=== PATIENT | male | born 1965 | race Caucasian/White ===

== ENCOUNTER → 2019-12-06 | Outpatient (CLI) | payer BC ==
--- NOTE | 2019-12-06 20:44 | US ---
EXAMINATION TYPE: US scrotum with doppler. Grayscale and color Doppler Duplex imaging performed of t fercho scrotum. DATE OF EXAM: 12/06/2019 COMPARISON: NONE CLINICAL HISTORY: Scrotal pain N50.82. Pt states left groin pain/ pt had left testicle removed 20 yrs ago for testicular CA EXAM MEASUREMENTS: TESTICLES: Right Testicle: 4.6 x 2.1 x 3.6 cm Left Testicle: Surgically absent EPIDIDYMIS HEAD: Right Epididymis: 1.3 cm Doppler performed to assess for testicular vascularity; good bilateral color flow and waveforms are s een. There is no evidence of testicular torsion. Presence of hydroceles: Small amount of fluid inferior Presence of varicoceles: No Microcalcification visualized lower right testicle/ Unable to visualize abnormality within left scr otum/groin to account for pt's symptoms IMPRESSION: 1. No suspicious abnormality to account for left groin pain 2. Microlithiasis inferior right testicle. Microcalcification has been associated with testicular can cer.
== END | disposition home or self-care (01) ==
LOC: RADUSWWP 16:05
PROVIDERS: ATTEND Family Medicine
DX: N50.89 Other specified disorders of the male genital organs (principal)
CPT/HCPCS: 76870; 93976

== ENCOUNTER → 2019-12-06 | Outpatient (CLI) | payer BC ==
--- NOTE | 2019-12-07 08:07 | XR ---
EXAMINATION TYPE: XR lumbosacral spine min 4V DATE OF EXAM: 12/06/2019 COMPARISON: NONE HISTORY: 54-year-old male low back pain for 4 months TECHNIQUE: 5 views FINDINGS: Small or absent T12 ribs. 5 lumbar type vertebral bodies. Subtle 4 mm calcification left mid abdomen. Hypertrophic facet arthropathy mid to lower lumbar spine. No pars interarticularis defect seen. Vert ebral body heights are preserved and alignment are maintained. Mild endplate spondylosis throughout. IMPRESSION: 1. Hypertrophic facet arthropathy mid to lower lumbar spine. The left. 2. Mild multilevel endplate spondylosis. 3. Subtle 4 mm calcification left midabdomen could represent a left renal calculus.
--- NOTE | 2019-12-07 08:08 | XR ---
EXAMINATION TYPE: XR pelvis AP view DATE OF EXAM: 12/06/2019 COMPARISON: NONE HISTORY: 54-year-old male with left-sided pelvic pain for years FINDINGS: Mild marginal spurring of both hips. Tiny 4 mm corticated density superolateral margin of the acetabu lum on the left could represent os acetabuli or degenerative labral ossification. Overall hip joint s pace is relatively maintained. No acute fracture, subluxation, or dislocation seen. SI joints appear symmetric and intact as does the pubic symphysis. IMPRESSION: Mild degenerative change of the hips. Either an os acetabuli or a 4 mm focus of degenerative labral o ssification on the left. No acute osseous abnormality seen.
== END | disposition home or self-care (01) ==
LOC: RAD 16:33
PROVIDERS: ATTEND Family Medicine
DX: M47.897 Other spondylosis, lumbosacral region (principal); M16.10 Unilateral primary osteoarthritis, unspecified hip; R10.2 Pelvic and perineal pain
CPT/HCPCS: 72110; 72170

== ENCOUNTER → 2020-10-03 | Outpatient (CLI) | payer OTHER ==
[~2020-10-03] MED LIST: REGADENOSON 0.4 MG/5 ML SYRINGE IV PRN
--- NOTE | 2020-10-03 15:42 | NM ---
EXAMINATION TYPE: NM stress lexiscan cardiolite DATE OF EXAM: 10/03/2020 COMPARISON: NONE HISTORY: R07.9 chest pain TECHNIQUE: After the intravenous administration of 10.1 mCi Tc 99m Sestamibi - Cardiolite resting SP ECT images acquired 45 minutes post injection. The patient received 0.4mg Lexiscan, 24.8 mCi Tc 99m Sestamibi - Stress images obtained [address] injection FINDINGS: Review of stress and rest SPECT images demonstrates no distinct perfusion abnormality. Gated analysi s shows normal wall motion with an estimated left ventricular ejection fraction of 40 %. IMPRESSION: No scintigraphic evidence for reversible ischemia. Abnormal low ejection fraction, consider correlati on with echocardiography A Yellow level critical message alert has been initiated for Rylie Ham DO via the [employer] Critical Results System on 10/03/2020 3:39 PM. This message alert has been sent to Rylie abbott DO via the preferences provided by the clinician for the receipt of Radiology Critical Findings. [facility] ID [id number].
--- NOTE | 2020-10-04 08:43 | ECHOS ---
- Stress Test Note Stress Test Results/Findings: Exam Performed: NM stress lexiscan cardiolite Exam Date: 10/03/20 Reason for Exam: CHEST PAIN Height: 5 ft 10 in Weight: 104.5 kg Protocol: LEXISCAN Stage: NA Duration of Exercise: 5 MINUTES Resting Heart Rate: 71 Resting Blood Pressure: 146/69 Maximum Achieved Heart Rate: 99 Maximum Achieved Blood Pressure: 170/52 85% PMHR: 139 100% PMHR: 163 METS: NA Technologist Comment: Stress Test Results/Findings: At baseline EKG showed normal sinus rhythm, normal axis, no significant ST or T- wave abnormalities. Patient recieved IV infusion of Lexiscan 0.4mg and at peak infusion EKG showed no significant change from baseline. Conclusions: 1. Normal EKG response to Lexiscan infusion 2. Nuclear imaging to be reported separately. MTDD
== END | disposition home or self-care (01) ==
LOC: RADNMMAIN 07:55
PROVIDERS: ATTEND Family Medicine
DX: R07.9 Chest pain, unspecified (principal)
CPT/HCPCS: 93017; 78452; A9500; J2785

== ENCOUNTER 2021-07-14 11:23 | Observation (INO) | payer OTHER ==
[2021-07-14] MEDS ORDERED: ASPIRIN 81 MG PO STA (12:03)
[2021-07-14] MEDS ORDERED: NITROGLYCERIN OINT 1 INCH/GM PACKET TOPICAL STA (12:03)
--- NOTE | 2021-07-14 12:07 | ED ---
General Adult HPI - General Chief complaint: Chest Pain Stated complaint: chest pain Time Seen by Provider: 07/14/21 11:35 Source: patient, RN notes reviewed, old records reviewed Mode of arrival: ambulatory Limitations: no limitations - History of Present Illness Initial comments: This is a 56-year-old male who presents to the emergency department complaining of chest pain intermittently over the last 2 weeks. Patient states it lasts about 10 minutes typically radiates up into his left side of his neck easily. Patient states she's also noted more shortness of breath over that same period of time. Patient states he used to smoke but now he only smokes marijuana probably once a day. Patient states he has high blood pressure high cholesterol as well as diabetes. Patient also states he has a family history of heart disease his father had a heart attack at 58. Patient states currently chest pain-free. Patient describes the pain is achiness on the left side of his chest. Patient denies any fever chills or cough per patient denies abdominal pain patient denies any nausea vomiting diarrhea. Patient denies any swelling legs or calf tenderness. - Related Data Home Medications Medication Instructions Recorded Confirmed Brimonidine 0.025% 1 drop RIGHT EYE BID 07/14/21 07/14/21 Clopidogrel Bisulfate [Plavix] 75 mg PO W/SUPPER 07/14/21 07/14/21 Pioglitazone HCl 30 mg PO W/SUPPER 07/14/21 07/14/21 Rosuvastatin Calcium 20 mg PO W/SUPPER 07/14/21 07/14/21 amLODIPine [Norvasc] 10 mg PO W/SUPPER 07/14/21 07/14/21 glipiZIDE XL [Glucotrol XL] 2.5 mg PO W/SUPPER 07/14/21 07/14/21 lisinopriL 10 mg PO W/SUPPER 07/14/21 07/14/21 Allergies Allergy/AdvReac Type Severity Reaction Status Date / Time No Known Allergies Allergy Verified 07/14/21 12:59 Review of Systems ROS Statement: Those systems with pertinent positive or pertinent negative responses have been documented in the HPI. ROS Other: All systems not noted in ROS Statement are negative. Past Medical History Past Medical History: Coronary Artery Disease (CAD), Cancer Additional Past Medical History / Comment(s): testicular cancer 2000 History of Any Multi-Drug Resistant Organisms: None Reported Additional Past Surgical History / Comment(s): stent in left groin Past Psychological History: No Psychological Hx Reported Smoking Status: Former smoker Past Alcohol Use History: Occasional Past Drug Use History: Marijuana General Exam - General Exam Comments Initial Comments: GENERAL: Patient is well-developed and well-nourished. Patient is nontoxic and well- hydrated and is in mild distress. ENT: Neck is soft and supple. No significant lymphadenopathy is noted. Oropharynx is clear. Moist mucous membranes. Neck has full range of motion without eliciting any pain. EYES: The sclera were anicteric and conjunctiva were pink and moist. Extraocular movements were intact and pupils were equal round and reactive to light. Eyelids were unremarkable. PULMONARY: Unlabored respirations. Good breath sounds bilaterally. No audible rales rhonchi or wheezing was noted. CARDIOVASCULAR: There is a regular rate and rhythm without any murmurs gallops or rubs. ABDOMEN: Soft and nontender with normal bowel sounds. SKIN: Skin is clear with no lesions or rashes and otherwise unremarkable. NEUROLOGIC: Patient is alert and oriented x3. Cranial nerves II through XII are grossly intact. Motor and sensory are also intact. Normal speech, volume and content. Symmetrical smile. MUSCULOSKELETAL: Normal extremities with adequate strength and full range of motion. No lower extremity swelling or edema. No calf tenderness. LYMPHATICS: No significant lymphadenopathy is noted PSYCHIATRIC: Normal psychiatric evaluation. Limitations: no limitations Course Vital Signs 07/14/21 07/14/21 11:27 12:00 Temperature 97.8 F Pulse Rate 90 84 Respiratory 18 18 Rate Blood Pressure 183/81 154/74 O2 Sat by Pulse 96 98 Oximetry Medical Decision Making - Medical Decision Making EKG shows sinus rhythm at 76 bpm WI interval 141 106 Q-T Intervals 37 QTC Is 417. Patient's EKG Shows No ST Segment Elevation or Depression. Chest x-ray shows no acute abnormality. I spoke was found physicians and agreed to admit the patient admitted the patient wrote admitting orders I consulted cardiology - Lab Data Result diagrams: 07/14/21 12:55 07/14/21 12:55 Lab Results 07/14/21 07/14/21 07/14/21 Range/Units 12:55 12:55 12:55 WBC 7.4 (3.8-10.6) k/uL RBC 4.84 (4.30-5.90) m/uL Hgb 14.9 (13.0-17.5) gm/dL Hct 44.7 (39.0-53.0) % MCV 92.4 (80.0-100.0) fL MCH 30.9 (25.0-35.0) pg MCHC 33.4 (31.0-37.0) g/dL RDW 14.5 (11.5-15.5) % Plt Count 324 (150-450) k/uL MPV 6.9 Neutrophils % 67 % Lymphocytes % 22 % Monocytes % 6 % Eosinophils % 1 % Basophils % 0 % Neutrophils # 5.0 (1.3-7.7) k/uL Lymphocytes # 1.6 (1.0-4.8) k/uL Monocytes # 0.5 (0-1.0) k/uL Eosinophils # 0.1 (0-0.7) k/uL Basophils # 0.0 (0-0.2) k/uL PT 10.1 (9.0-12.0) sec INR 0.9 (<1.2) APTT 23.6 (22.0-30.0) sec Sodium 136 L (137-145) mmol/L Potassium 4.5 (3.5-5.1) mmol/L Chloride 105 (98-107) mmol/L Carbon Dioxide 24 (22-30) mmol/L Anion Gap 7 mmol/L BUN 17 (9-20) mg/dL Creatinine 0.84 (0.66-1.25) mg/dL Est GFR (CKD-EPI)AfAm >90 (>60 ml/min/1.73 sqM) Est GFR (CKD-EPI)NonAf >90 (>60 ml/min/1.73 sqM) Glucose 109 H (74-99) mg/dL Calcium 9.3 (8.4-10.2) mg/dL Magnesium 2.0 (1.6-2.3) mg/dL Total Bilirubin 0.5 (0.2-1.3) mg/dL AST 22 (17-59) U/L ALT 24 (4-49) U/L Alkaline Phosphatase 54 (38-126) U/L Troponin I (0.000-0.034) ng/mL Total Protein 7.2 (6.3-8.2) g/dL Albumin 4.2 (3.5-5.0) g/dL 07/14/21 Range/Units 12:55 WBC (3.8-10.6) k/uL RBC (4.30-5.90) m/uL Hgb (13.0-17.5) gm/dL Hct (39.0-53.0) % MCV (80.0-100.0) fL MCH (25.0-35.0) pg MCHC (31.0-37.0) g/dL RDW (11.5-15.5) % Plt Count (150-450) k/uL MPV Neutrophils % % Lymphocytes % % Monocytes % % Eosinophils % % Basophils % % Neutrophils # (1.3-7.7) k/uL Lymphocytes # (1.0-4.8) k/uL Monocytes # (0-1.0) k/uL Eosinophils # (0-0.7) k/uL Basophils # (0-0.2) k/uL PT (9.0-12.0) sec INR (<1.2) APTT (22.0-30.0) sec Sodium (137-145) mmol/L Potassium (3.5-5.1) mmol/L Chloride (98-107) mmol/L Carbon Dioxide (22-30) mmol/L Anion Gap mmol/L BUN (9-20) mg/dL Creatinine (0.66-1.25) mg/dL Est GFR (CKD-EPI)AfAm (>60 ml/min/1.73 sqM) Est GFR (CKD-EPI)NonAf (>60 ml/min/1.73 sqM) Glucose (74-99) mg/dL Calcium (8.4-10.2) mg/dL Magnesium (1.6-2.3) mg/dL Total Bilirubin (0.2-1.3) mg/dL AST (17-59) U/L ALT (4-49) U/L Alkaline Phosphatase (38-126) U/L Troponin I <0.012 (0.000-0.034) ng/mL Total Protein (6.3-8.2) g/dL Albumin (3.5-5.0) g/dL Disposition Clinical Impression: Chest pain Disposition: ADMITTED IP TO THIS [facility] Referrals: Nonstaff,Physician [Primary Care Provider] - 1-2 days Time of Disposition: 14:09
--- NOTE | 2021-07-14 12:58 | XR ---
EXAMINATION TYPE: XR chest 2V DATE OF EXAM: 07/14/2021 COMPARISON: None HISTORY: 56-year-old male chest pain TECHNIQUE: PA and lateral views FINDINGS: The cardiomediastinal silhouette, aorta, and pulmonary vasculature are within normal limits. Mild hyp erinflation. Lungs and pleural spaces are clear. IMPRESSION: Mild hyperinflation may relate to depth of inspiration or underlying emphysema. Otherwise, no acute c ardiopulmonary process.
[2021-07-14 13:12] LABS: Basophils % (A) 0 %; Eosinophils # (A) 0.1 k/uL (0-0.7); Eosinophils % (A) 1 %; HCT 44.7 % (39.0-53.0); HGB 14.9 gm/dL (13.0-17.5); Lymphocytes # (A) 1.6 k/uL (1.0-4.8); Lymphocytes % (A) 22 %; MCH 30.9 pg (25.0-35.0); MCHC 33.4 g/dL (31.0-37.0); MCV 92.4 fL (80.0-100.0); Mean Platelet Volume 6.9; Monocytes # (A) 0.5 k/uL (0-1.0); Monocytes % (A) 6 %; Neutrophils % (A) 67 %; Platelet Count 324 k/uL (150-450); RBC 4.84 m/uL (4.30-5.90); RDW 14.5 % (11.5-15.5); WBC 7.4 k/uL (3.8-10.6)
[2021-07-14 13:29] LABS: INR 0.9 (<1.2); Partial Thromboplastin Time 23.6 sec (22.0-30.0); Prothrombin Time 10.1 sec (9.0-12.0)
[2021-07-14 13:37] LABS: ALT 24 U/L (4-49); AST 22 U/L (17-59); African American GFR (CKD) >90 (>60 ml/min/1.73 sqM); Albumin 4.2 g/dL (3.5-5.0); Alkaline Phosphatase 54 U/L (38-126); Anion Gap 7 mmol/L; Blood Urea Nitrogen 17 mg/dL (9-20); Calcium 9.3 mg/dL (8.4-10.2); Carbon Dioxide 24 mmol/L (22-30); Chloride 105 mmol/L (98-107); Glucose 109 mg/dL (74-99); Non-African American GFR(CKD) >90 (>60 ml/min/1.73 sqM); Potassium 4.5 mmol/L (3.5-5.1); Sodium 136 mmol/L (137-145); Total Bilirubin 0.5 mg/dL (0.2-1.3); Total Protein 7.2 g/dL (6.3-8.2)
[2021-07-14] MEDS ORDERED: NITROGLYCERIN SL TABS 0.4 MG TAB SUBLINGUAL PRN (14:09)
--- NOTE | 2021-07-14 16:47 | P.HPIM ---
History of Present Illness H&P Date: 07/14/21 History of Presenting Illness: Patient is a very pleasant 56-year-old male with history of former nicotine dependence smoking a half a pack per day 25 years quit in 2003, daily marijuana use, hypertension, hyperlipidemia, [id number]-antnoznmk diabetes mellitus type 2, peripheral vascular disease status post stent in left groin, and testicular cancer. He presented to the emergency department with a chief complaint of chest pain. It was reported this chest pain has been intermittent waxing and waning over the past 2 weeks coming on sporadically lasting about 10 minutes and resolving without intervention. Chest pain is described as a generalized achiness and soreness to left anterior chest that radiates through into his back and up into the left side of his neck and has been accompanied by shortness of breath. Patient states this pain typically occurs later in the evenings and while lying down. He reports walking 10,000 steps daily and never has chest pain or shortness of breath during this activity. Patient denies having any recent illnesses or exposure to known ill contacts, fevers, chills, diaphoresis, headache, lightheadedness, dizziness, cough, congestion, palpitations, nausea, vomiting, or experiencing any numbness/daily/weakness/swelling in his ex tremities. In the Emergency Department patient underwent full evaluation. An EKG was completed revealing normal sinus rhythm at 76 bpm with no noted T-wave or ST abnormalities showing no signs of acute ischemia. Chest x-ray revealing mild hyperinflation possibly secondary to underlying emphysema and negative for acute cardiopulmonary process. Labs completed with CBC, coags, and CMP showing no significant abnormalities. Troponin negative at less than 0.012. Patient was admitted under our services with consultation to cardiology. Review of systems: Pertinent positives and negatives as discussed in HPI, a complete review of systems was performed and all other systems are negative. Physical exam: Vital signs reviewed and stable. General: Nontoxic, no distress and appears stated age. Derm: Skin warm and dry, normal coloration for ethnicity. Head: Atraumatic, normocephalic and symmetric. Eyes: EOMs intact, no lid lag, and anicteric sclera Mouth: no lip lesions, mucus membranes moist Cardiovascular: regular rate and rhythm with normal S1S2, no murmur, positive posterior tibial pulses bilaterally, and cap refill < 2 seconds. Lungs: Respirations even, regular, and unlabored on room air. Lungs CTA bilaterally, no rhonchi, no rales, no wheezing, and no accessory muscle usage. Abdominal: soft, nontender to palpation, no guarding, no appreciable organomegaly Ext: ROM intact. No gross muscle atrophy, no edema, no contractures Neuro: Speech clear, face symmetrical and CN II-XII grossly intact with no noted focal neuro deficits Psych: Alert and oriented to person, place, time, and situation. Appropriate and pleasant affect. Assessment and Plan of Care: Chest pain, rule out acute coronary event -Cardiology consult, appreciate further recommendations -Telemetry monitoring -Trend troponins -Cardiac diet, NPO at midnight -Aspirin, atorvastatin, and metoprolol -Lipid profile with a.m. labs. -Echocardiogram Peripheral vascular disease status post stenting to left groin -Continue daily aspirin, rosuvastatin, and Plavix. Hypertension -Monitor vital signs and continue daily medication regimen with amlodipine and lisinopril. Hyperlipidemia -Continue daily medication regimen with rosuvastatin 20 mg nightly. -Heart healthy diet -Lipid profile with a.m. labs Type II zla-ackxrql-ojywvzric diabetes mellitus -Hold glipizide and pioglitazone and place patient on glycemic protocol with NovoLog sliding scale. Daily cannabis use -Encourage and educate patient on the importance of smoking cessation and the risks associated with continued use. Former nicotine dependence -Patient smoked a half a pack of cigarettes per day 25 years, quit in 2003. The patient is admitted with an anticipated less than 2 midnight stay for evaluation of chest pain. CODE STATUS: Full code DVT prophylaxis: Heparin Discussed with: Patient and RN Anticipated discharge date: Tomorrow morning Anticipated discharge place: Home A total of 40 minutes was spent on the care of this complex patient more than 50% of the time was spent in counseling and care coordination. I reviewed the documentation as provided by the TENISHA above, who is the original author of this note. I agree with the documented assessment and plan, with the following changes: None Past Medical History Past Medical History: Cancer, Diabetes Mellitus, Hyperlipidemia, Hypertension, Sleep Apnea/CPAP/BIPAP, Vascular Disorder Additional Past Medical History / Comment(s): L testicular cancer 2000 with surgery/radiation, NIDDM type II, neuropathy bilateral feet, PVD, GAMAL with Cpap, benign colon polyp History of Any Multi-Drug Resistant Organisms: None Reported Past Surgical History: Breast Surgery Additional Past Surgical History / Comment(s): L groin stent, L orchiectomy, L breast benign lumpectomy, colonoscopies. Past Anesthesia/Blood Transfusion Reactions: No Reported Reaction Smoking Status: Former smoker - Past Family History Mother Family Medical History: Cancer Additional Family Medical History / Comment(s): Mother is . She had some form of blood cancer and heart problems. Father Family Medical History: Coronary Artery Disease (CAD), Diabetes Mellitus Additional Family Medical History / Comment(s): Father is living. Medications and Allergies Home Medications Medication Instructions Recorded Confirmed Type Brimonidine 0.025% 1 drop RIGHT EYE BID 07/14/21 07/14/21 History Clopidogrel Bisulfate [Plavix] 75 mg PO W/SUPPER 07/14/21 07/14/21 History Pioglitazone HCl 30 mg PO W/SUPPER 07/14/21 07/14/21 History Rosuvastatin Calcium 20 mg PO W/SUPPER 07/14/21 07/14/21 History amLODIPine [Norvasc] 10 mg PO W/SUPPER 07/14/21 07/14/21 History glipiZIDE XL [Glucotrol XL] 2.5 mg PO W/SUPPER 07/14/21 07/14/21 History lisinopriL 10 mg PO W/SUPPER 07/14/21 07/14/21 History Allergies Allergy/AdvReac Type Severity Reaction Status Date / Time No Known Allergies Allergy Verified 07/14/21 12:59 Physical Exam Osteopathic Statement: *. No significant issues noted on an osteopathic structural exam other than those noted in the History and Physical/Consult. Vitals: Vital Signs Temp Pulse Resp BP Pulse Ox 07/14/21 12:00 84 18 154/74 98 07/14/21 11:27 97.8 F 90 18 183/81 96 Intake and Output 07/14/21 07/14/21 07/14/21 06:59 14:59 22:59 Other: Weight 108.862 kg 108.862 kg Results CBC & Chem 7: 07/14/21 12:55 07/14/21 12:55 Labs: Abnormal Lab Results - Last 24 Hours (Table) 07/14/21 Range/Units 12:55 Sodium 136 L (137-145) mmol/L Glucose 109 H (74-99) mg/dL Thrombosis Risk Factor Assmnt - Choose All That Apply Any of the Below Risk Factors Present?: Yes Each Factor Represents 1 point: Age 41-60 years, Obesity (BMI >25) Other Risk Factors: Yes Each Risk Factor Represents 2 Points: Malignancy Other congenital or acquired thrombophilia - If yes, enter type in comment: No Thrombosis Risk Factor Assessment Total Risk Factor Score: 4 Thrombosis Risk Factor Assessment Level: Moderate Risk
[2021-07-14] MEDS ORDERED: ATORVASTATIN 40 MG TAB PO SCH ×2 (17:30→21:00)
[2021-07-14] MEDS ORDERED: CLOPIDOGREL 75 MG TAB PO SCH (17:30)
[2021-07-14] MEDS ORDERED: lisinopriL 10 MG TAB PO SCH (17:30)
[2021-07-14] MEDS ORDERED: amLODIPine 10 MG TAB PO SCH (17:30)
[2021-07-14 17:53] LABS: Glucose,Whole Blood 191 mg/dL (75-99)
[2021-07-14] MEDS: HEPARIN SODIUM,PORCINE/PF 5,000 UNIT/0.5 ML SYRINGE SQ SCH ×2 (18:07→23:49)
[2021-07-14] MEDS: PANTOPRAZOLE 40 MG TABLET PO SCH (18:09)
[2021-07-14] MEDS: NITROGLYCERIN OINT 1 INCH/GM PACKET TOPICAL SCH ×2 (18:11→23:51)
[2021-07-14] MEDS: INSULIN ASPART (NovoLOG) 100 UNIT/ML VIAL SQ SCH ×2 (20:42→21:38)
[2021-07-15] MEDS: NITROGLYCERIN OINT 1 INCH/GM PACKET TOPICAL SCH (04:40)
--- NOTE | 2021-07-15 06:51 | ECHOF ---
Referral Reason:Evaluate structure and function MEASUREMENTS -------- HEIGHT: 180.3 cm WEIGHT: 108.9 kg BP: RVIDd: 2.6 cm (< 3.3) IVSd: 1.4 cm (0.6 - 1.1) LVIDd: 4.8 cm (3.9 - 5.3) LVPWd: 1.3 cm (0.6 - 1.1) IVSs: 1.8 cm LVIDs: 3.0 cm LVPWs: 1.9 cm LA Diam: 3.6 cm (2.7 - 3.8) LAESV Index (A-L): 18.62 ml/m Ao Diam: 3.4 cm (2.0 - 3.7) AV Cusp: 1.8 cm (1.5 - 2.6) MV EXCURSION: 14.703 mm (> 18.000) MV EF SLOPE: 57 mm/s (70 - 150) EPSS: 0.7 cm MV E Wilfredo: 0.67 m/s MV DecT: 274 ms MV A Wilfredo: 0.46 m/s MV E/A Ratio: 1.47 FINDINGS -------- Sinus rhythm. This was a technically adequate study. The left ventricular size is normal. There is moderate concentric left ventricular hypertrophy. O verall left ventricular systolic function is normal with, an EF between 55 - 60 %. The right ventricle is normal in size. Normal LA size by volume 22+/-6 ml/m2. The right atrial size is normal. Interatrial and interventricular septum intact. The aortic valve is trileaflet, and appears structurally normal. No aortic stenosis or regurgitation. The mitral valve is normal. There is trace to mild mitral regurgitation. The tricuspid valve appears structurally normal. Trace tricuspid regurgitation present. Unable to estimate RVSP due to inadequate TR jet spectral doppler profile. The pulmonic valve was not well visualized. There is no pulmonic regurgitation present. The aortic root size is normal. Normal inferior vena cava with normal inspiratory collapse consistent with estimated right atrial pre ssure of 5 mmHg. Echo free space may represent effusion or a pericardial fat pad. CONCLUSIONS -------- 1. There is moderate concentric left ventricular hypertrophy. 2. Overall left ventricular systolic function is normal with, an EF between 55 - 60 %. 3. The aortic valve is trileaflet, and appears structurally normal. No aortic stenosis or regurgitati on. 4. There is trace to mild mitral regurgitation. 5. Trace tricuspid regurgitation present. 6. Echo free space may represent effusion or a pericardial fat pad. FABRIC NORMALIZER: FILOMENA Richter
[2021-07-15 07:04] VITALS: RESP 16
[2021-07-15 07:17] LABS: Glucose,Whole Blood 122 mg/dL (75-99)
--- NOTE | 2021-07-15 07:31 | P.CRDCN ---
History of Present Illness Consult date: 07/15/21 History of present illness: History of Present Illness: The patient is a 56-year-old male with a known history of hypertension, hyperlipidemia, diabetes and a prior history of smoking who presented with symptoms of chest discomfort. His discomfort has been going on for the last week or so, predominantly at rest, not activity related. He walks about 10,000 steps a day and has no significant chest discomfort yet recently he has noted some increase in his dyspnea on exertion. He has no prior history of documented obstructive coronary artery disease but he has a history of peripheral vessel disease status post stenting of his left lower extremity. He has no history of PND or orthopnea. He has mild peripheral edema on the left side. He denies any dizziness, palpitations or syncope. He underwent an echocardiogram that showed a normal systolic function. He has been followed on a regular basis by Dr. Chadwick. He smokes marijuana on a daily basis and stop tobacco use in 2004. His medication at home include lisinopril 10 mg daily, rosuvastatin 20 mg daily, Actos 30 mg daily, glipizide 2.5 milligrams daily, Plavix 75 mg daily and amlodipine 5 mg daily. Review of Systems: Respiratory: No history of asthma, bronchitis or recent cough. GI: She had nausea and vomiting today. No history of peptic ulcer disease. No recent GI bleed. : No hematuria or dysuria. Nervous System: No stroke or seizure. Physical Examination: 56-year-old male alert and oriented no apparent stress, blood pressure 131/70 with a heart rate 60 Head: Normocephalic. Eyes: Sclerae nonicteric. Neck: Good carotid upstroke, no bruit, no jugular venous distention. Lungs: Clear to auscultation. Heart: Regular rate and rhythm, S1-S2, no S3, no rub. No murmur. Abdomen: Soft nontender, positive bowel sounds no organomegaly. Extremities: Trace edema on the left side, intact distal pulses. Labs: EKG shows sinus mechanism with borderline right axis deviation otherwise within normal range. Chest x-ray shows no acute infiltrate. Troponin less than 0.012, BUN 17, creatinine 0.84. Hemoglobin 14.9 Impression: 1. Chest discomfort of unclear etiology, has atypical features for ischemic heart disease in a patient with multiple risk factors 2. History of peripheral vascular disease 3. History of hypertension 4. History of diabetes 5. History of hyperlipidemia 6. Marijuana use Plan: 1. Continue present therapy 2. Proceed with stress nuclear testing 3. If there is any evidence of stress-induced ischemia then proceed with coronary angiography 4. I discussed the findings and the recommendation with the patient and depending on the results of the testing further recommendations will be made 5. Thank you for this consult we will follow with you. 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 Past Anesthesia/Blood Transfusion Reactions: No Reported Reaction Smoking Status: Former smoker - Past Family History Mother Family Medical History: Cancer Additional Family Medical History / Comment(s): Mother is . She had some form of blood cancer and heart problems. Father Family Medical History: Coronary Artery Disease (CAD), Diabetes Mellitus Additional Family Medical History / Comment(s): Father is living. Medications and Allergies Home Medications Medication Instructions Recorded Confirmed Type Brimonidine 0.025% 1 drop RIGHT EYE BID 07/14/21 07/14/21 History Clopidogrel Bisulfate [Plavix] 75 mg PO W/SUPPER 07/14/21 07/14/21 History Pioglitazone HCl 30 mg PO W/SUPPER 07/14/21 07/14/21 History Rosuvastatin Calcium 20 mg PO W/SUPPER 07/14/21 07/14/21 History amLODIPine [Norvasc] 10 mg PO W/SUPPER 07/14/21 07/14/21 History glipiZIDE XL [Glucotrol XL] 2.5 mg PO W/SUPPER 07/14/21 07/14/21 History lisinopriL 10 mg PO W/SUPPER 07/14/21 07/14/21 History Allergies Allergy/AdvReac Type Severity Reaction Status Date / Time No Known Allergies Allergy Verified 07/14/21 12:59 Physical Exam Vitals: Vital Signs Temp Pulse Pulse Resp BP BP BP 07/15/21 06:53 97.5 F L 59 L 16 131/72 07/15/21 02:51 98.1 F 64 15 131/70 07/14/21 21:04 97.9 F 65 16 132/75 07/14/21 19:00 84 18 154/74 07/14/21 18:00 80 16 133/82 07/14/21 16:00 82 18 126/78 07/14/21 14:00 80 18 138/78 07/14/21 12:00 84 18 154/74 07/14/21 11:27 97.8 F 90 18 183/81 Pulse Ox 07/15/21 06:53 98 07/15/21 02:51 98 07/14/21 21:04 97 07/14/21 19:00 98 07/14/21 18:00 98 07/14/21 16:00 98 07/14/21 14:00 98 07/14/21 12:00 98 07/14/21 11:27 96 Intake and Output 07/14/21 07/15/21 07/15/21 22:59 06:59 14:59 Other: # Voids 1 1 Weight 108.862 kg Results 07/14/21 12:55 07/14/21 12:55 Cardiac Enzymes 07/14/21 07/14/21 07/14/21 Range/Units 12:55 12:55 18:28 AST 22 (17-59) U/L Troponin I <0.012 <0.012 (0.000-0.034) ng/mL 07/14/21 Range/Units 21:15 AST (17-59) U/L Troponin I <0.012 (0.000-0.034) ng/mL Coagulation 07/14/21 Range/Units 12:55 PT 10.1 (9.0-12.0) sec APTT 23.6 (22.0-30.0) sec CBC 07/14/21 Range/Units 12:55 WBC 7.4 (3.8-10.6) k/uL RBC 4.84 (4.30-5.90) m/uL Hgb 14.9 (13.0-17.5) gm/dL Hct 44.7 (39.0-53.0) % Plt Count 324 (150-450) k/uL Comprehensive Metabolic Panel 07/14/21 Range/Units 12:55 Sodium 136 L (137-145) mmol/L Potassium 4.5 (3.5-5.1) mmol/L Chloride 105 (98-107) mmol/L Carbon Dioxide 24 (22-30) mmol/L BUN 17 (9-20) mg/dL Creatinine 0.84 (0.66-1.25) mg/dL Glucose 109 H (74-99) mg/dL Calcium 9.3 (8.4-10.2) mg/dL AST 22 (17-59) U/L ALT 24 (4-49) U/L Alkaline Phosphatase 54 (38-126) U/L Total Protein 7.2 (6.3-8.2) g/dL Albumin 4.2 (3.5-5.0) g/dL Current Medications Generic Name Dose Route Start Last Admin Trade Name Freq PRN Reason Stop Dose Admin Amlodipine Besylate 10 mg 07/14/21 17:30 07/14/21 18:08 Amlodipine 10 Mg Tab PO 10 mg W/SUPPER [facility] Administration Aspirin 81 mg 07/15/21 09:00 Aspirin 81 Mg PO DAILY [facility] Atorvastatin Calcium 40 mg 07/14/21 17:30 07/14/21 18:09 Atorvastatin 40 Mg Tab PO 40 mg W/SUPPER JENNIFER Administration Clopidogrel Bisulfate 75 mg 07/14/21 17:30 07/14/21 18:09 Clopidogrel 75 Mg Tab PO 75 mg W/SUPPER JENNIFER Administration Glipizide 2.5 mg 07/14/21 21:00 07/14/21 21:35 Glipizide 2.5 Mg Tab PO 2.5 mg W/SUPPER JENNIFER Administration Heparin Sodium (Porcine) 5,000 unit 07/14/21 16:00 07/14/21 23:49 Heparin Sodium,Porcine/Pf 5,000 Unit/0.5 Ml Syringe SQ 5,000 unit Q8HR JENNIFER Administration Insulin Aspart 0 unit 07/14/21 17:30 07/14/21 21:38 Insulin Aspart (Novolog) 100 Unit/Ml Vial SQ Not Given [facility] Protocol Lisinopril 10 mg 07/14/21 17:30 07/14/21 18:10 Lisinopril 10 Mg Tab PO 10 mg W/SUPPER JENNIFER Administration Nitroglycerin 0.4 mg 07/14/21 14:09 Nitroglycerin Sl Tabs 0.4 Mg Tab SUBLINGUAL Q5M PRN Chest Pain Pantoprazole Sodium 40 mg 07/14/21 17:30 07/14/21 18:09 Pantoprazole 40 Mg Tablet PO 40 mg AC-BID JENNIFER Administration Intake and Output 07/14/21 07/15/21 07/15/21 22:59 06:59 14:59 Other: # Voids 1 1 Weight 108.862 kg 07/14/21 12:55 07/14/21 12:55
[2021-07-15] MEDS: INSULIN ASPART (NovoLOG) 100 UNIT/ML VIAL SQ SCH ×2 (07:55→13:40)
[2021-07-15] MEDS: HEPARIN SODIUM,PORCINE/PF 5,000 UNIT/0.5 ML SYRINGE SQ SCH (08:03)
[2021-07-15] MEDS: PANTOPRAZOLE 40 MG TABLET PO SCH (08:03)
[2021-07-15] MEDS ORDERED: ASPIRIN 325 MG TAB PO SCH (09:00)
[2021-07-15] MEDS ORDERED: ASPIRIN 81 MG PO SCH (09:00)
[2021-07-15 09:23] LABS: Chol/HDL Ratio 3.05 Ratio; LDL Cholesterol,Calculated 71.4 mg/dL (0.0-131.0)
--- NOTE | 2021-07-15 10:50 | P.PN ---
Subjective Progress Note Date: 07/15/21 HISTORY OF PRESENT ILLNESS: The patient is a 56-year-old male with a known history of hypertension, hyperlipidemia, diabetes and a prior history of smoking who presented with symptoms of chest discomfort. His discomfort has been going on for the last week or so, predominantly at rest, not activity related. He walks about 10,000 steps a day and has no significant chest discomfort yet recently he has noted some increase in his dyspnea on exertion. He has no prior history of documented obstructive coronary artery disease but he has a history of peripheral vessel disease status post stenting of his left lower extremity. He has no history of PND or orthopnea. He has mild peripheral edema on the left side. He denies any dizziness, palpitations or syncope. He underwent an echocardiogram that showed a normal systolic function. He has been followed on a regular basis by Dr. Chadwick. He smokes marijuana on a daily basis and stop tobacco use in 2004. His medication at home include lisinopril 10 mg daily, rosuvastatin 20 mg daily, Actos 30 mg daily, glipizide 2.5 milligrams daily, Plavix 75 mg daily and amlodipine 5 mg daily. 07/15/2021 Patient examined this morning. Patient denies chest pain or pressure. Patient denies shortness of breath. Echocardiogram completed revealing ejection fraction 55-60%, trace to mild MR, trace TR. Vital signs are stable. PHYSICAL EXAM: VITAL SIGNS: Reviewed. GENERAL: Well-developed in no acute distress. NECK: Supple. No JVD or thyromegaly LUNGS: Respirations even and unlabored. Lungs essentially clear to auscultation bilaterally. HEART: Regular rate and rhythm. S1 and S2 heard. EXTREMITIES: Normal range of motion. No clubbing or cyanosis. Peripheral pulses intact. No lower extremity edema ASSESSMENT: 1. Chest discomfort of unclear etiology, has atypical features for ischemic heart disease in a patient with multiple risk factors 2. History of peripheral vascular disease 3. History of hypertension 4. History of diabetes 5. History of hyperlipidemia 6. Marijuana use PLAN: Continue current cardiac medications Patient to undergo Lexiscan stress test this morning. If Kristin scan is negative, the patient may be discharged home from a cardiac standpoint Further recommendations pending patient's course Nurse practitioner note has been reviewed by physician. Signing provider agrees with the documented findings, assessment, and plan of care. Objective - Vital Signs Vital signs: Vital Signs Temp 97.5 F L 07/15/21 06:53 Pulse 59 L 07/15/21 06:53 Resp 16 07/15/21 06:53 BP 131/72 07/15/21 06:53 Pulse Ox 98 07/15/21 06:53 Intake & Output 07/14/21 07/15/21 07/15/21 18:59 06:59 18:59 Weight 108.862 kg Other: # Voids 1 - Labs CBC & Chem 7: 07/14/21 12:55 07/14/21 12:55 Labs: Abnormal Lab Results - Last 24 Hours (Table) 07/14/21 07/14/21 07/15/21 Range/Units 12:55 17:51 06:11 Sodium 136 L (137-145) mmol/L Glucose 109 H (74-99) mg/dL POC Glucose (mg/dL) 191 H (75-99) mg/dL Triglycerides 171.00 H (0.00-149.00) mg/dL 07/15/21 Range/Units 07:15 Sodium (137-145) mmol/L Glucose (74-99) mg/dL POC Glucose (mg/dL) 122 H (75-99) mg/dL Triglycerides (0.00-149.00) mg/dL
[2021-07-15 12:16] LABS: Glucose,Whole Blood 107 mg/dL (75-99)
--- NOTE | 2021-07-15 13:09 | NM ---
EXAMINATION TYPE: NM stress cardiolite complete DATE OF EXAM: 07/15/2021 COMPARISON: NONE HISTORY: TECHNIQUE: After the intravenous administration of 10.0 mCi Tc 99m Sestamibi - Rest images obtained 45 minutes post injection. The patient exercised using a BRAD protocol and 1 minute prior to peak exercise was injected with 27.0 mCi Tc 99m Sestamibi - Stress images obtained 40 minutes post injecti on. FINDINGS: Targeted heart rate was achieved during performance of the study. Review of stress and rest SPECT kate ges demonstrates no distinct perfusion abnormality. Gated analysis shows normal wall motion with an estimated left ventricular ejection fraction of 57 %. IMPRESSION: No scintigraphic evidence for reversible ischemia
--- NOTE | 2021-07-15 13:38 | P.DS ---
Providers Date of admission: 07/14/21 14:09 Expected date of discharge: 07/15/21 Attending physician: Darío Rodriguez MD Consults: 07/14/21 14:09 Consult Physician Urgent Consulting Provider: [facility] Consult Reason/Comments: Chest pain Do you want consulting provider notified?: Yes Primary care physician: Physician Nonstaff Hospital Course: Discharge Diagnosis: Chest pain, acute coronary event ruled out Hypertriglyceridemia, recommend continuation of daily rosuvastatin, Plavix, and heart healthy diet. Peripheral vascular disease status post stenting to left groin, Continue daily rosuvastatin and Plavix. Hypertension, Monitor vital signs and continue daily medication regimen with amlodipine and lisinopril. Hyperlipidemia, Continue daily medication regimen with rosuvastatin 20 mg nightly. Mild hyperinflation of lungs possible underlying emphysema, recommend follow up outpatient with pulmonology for PFTs Type II gth-[id number]-nxdbmfnra diabetes mellitus, continue daily medication regimen with glipizide and pioglitazone Daily cannabis use, recommend cessation of smoking marijuana Former nicotine dependence, Patient smoked a half a pack of cigarettes per day 25 years, quit in 2003. Hospital Course: Patient is a very pleasant 56-year-old male with history of former nicotine dependence smoking a half a pack per day 25 years quit in 2003, daily marijuana use, hypertension, hyperlipidemia, bbg-hxrmgny-cjgukdtch diabetes mellitus type 2, peripheral vascular disease status post stent in left groin, and testicular cancer. He presented to the emergency department with a chief complaint of chest pain. It was reported this chest pain has been intermittent waxing and waning over the past 2 weeks coming on sporadically lasting about 10 minutes and resolving without intervention. Chest pain is described as a generalized achiness and soreness to left anterior chest that radiates through into his back and up into the left side of his neck and has been accompanied by shortness of breath. Patient states this pain typically occurs later in the evenings and while lying down. He reports walking 10,000 steps daily and never has chest pain or shortness of breath during this activity. Patient denies having any recent illnesses or exposure to known ill contacts, fevers, chills, diaphoresis, headache, lightheadedness, dizziness, cough, congestion, palpitations, nausea, vomiting, or experiencing any numbness/daily/weakness/swelling in his extremi ties. In the Emergency Department patient underwent full evaluation. An EKG was completed revealing normal sinus rhythm at 76 bpm with no noted T-wave or ST abnormalities showing no signs of acute ischemia. Chest x-ray revealing mild hyperinflation possibly secondary to underlying emphysema and negative for acute cardiopulmonary process. Labs completed with CBC, coags, and CMP showing no significant abnormalities. Troponin negative at less than 0.012. Patient was admitted under our services with consultation to cardiology. Troponins were trended overnight all resulting at less than 0.012 times 3 draws. Echocardiogram showing an EF of 55-60% with no significant valvular abnormalities and moderate concentric left ventricular hypertrophy. Stress test revealing no scintigraphic evidence for reversible ischemia. Lipid profile revealing hypertriglyceridemia with triglycerides of 171. Patient to continue with rosuvastatin and Plavix and recommended to follow heart healthy diet. In regards to mild hyperinflation with possible underlying emphysema, had long discussion with patient and over continued smoking cessation with cigarettes and recommended cessation of smoking marijuana. Patient states this was a wakeup call and reports that he will Smoking. Instructed to follow up outpatient with his PCP and cardiology and given contact information for relays draftsperson was called with her head to have baseline pulmonary function tests completed. Patient is free from chest pain walking around unit without any complaints. Vital signs stable. Patient medically stable for discharge at this time. Physical exam: Vital signs reviewed and stable. General: Nontoxic, no distress and appears stated age. Derm: Skin warm and dry, normal coloration for ethnicity. Head: Atraumatic, normocephalic and symmetric. Eyes: EOMs intact, no lid lag, and anicteric sclera Mouth: no lip lesions, mucus membranes moist Cardiovascular: regular rate and rhythm with normal S1S2, no murmur, positive posterior tibial pulses bilaterally, and cap refill < 2 seconds. Lungs: Respirations even, regular, and unlabored on room air. Lungs CTA bilaterally, no rhonchi, no rales, no wheezing, and no accessory muscle usage. Abdominal: soft, nontender to palpation, no guarding, no appreciable organomegaly Ext: ROM intact. No gross muscle atrophy, no edema, no contractures Neuro: Speech clear, face symmetrical and CN II-XII grossly intact with no noted focal neuro deficits Psych: Alert and oriented to person, place, time, and situation. Appropriate and pleasant affect. A total of 37 minutes of time were spent preparing this complex discharge summary. I reviewed the documentation as provided by the TENISHA above, who is the original author of this note. I agree with the documented assessment and plan, with the following changes: None Patient Condition at Discharge: Stable Plan - Discharge Summary Discharge Rx Participant: No New Discharge Prescriptions: Continue Brimonidine 0.025% 1 drop RIGHT EYE BID amLODIPine [Norvasc] 10 mg PO W/SUPPER Clopidogrel Bisulfate [Plavix] 75 mg PO W/SUPPER glipiZIDE XL [Glucotrol XL] 2.5 mg PO W/SUPPER lisinopriL 10 mg PO W/SUPPER Pioglitazone HCl 30 mg PO W/SUPPER Rosuvastatin Calcium 20 mg PO W/SUPPER Discharge Medication List Brimonidine 0.025% 1 drop RIGHT EYE BID 07/14/21 [History] Clopidogrel Bisulfate [Plavix] 75 mg PO W/SUPPER 07/14/21 [History] Pioglitazone HCl 30 mg PO W/SUPPER 07/14/21 [History] Rosuvastatin Calcium 20 mg PO W/SUPPER 07/14/21 [History] amLODIPine [Norvasc] 10 mg PO W/SUPPER 07/14/21 [History] glipiZIDE XL [Glucotrol XL] 2.5 mg PO W/SUPPER 07/14/21 [History] lisinopriL 10 mg PO W/SUPPER 07/14/21 [History] Follow up Appointment(s)/Referral(s): Clint Wright MD [REFERRING] - 1 Week Yamilet Rodney MD [STAFF PHYSICIAN] - 1 Week (As we discussed he may follow-up with relays draftsperson for outpatient pulmonary function tests.) Wes Lanza MD [STAFF PHYSICIAN] - 2 Weeks Patient Instructions/Handouts: Chest Pain (DC), Cardiac Stress Test (DC) Activity/Diet/Wound Care/Special Instructions: Activity: As tolerated. Take breaks as needed. Diet: Heart healthy and carb consistent diet. Avoid salts, or foods with hidden salts such as canned or boxed foods and frozen dinners. Extra salt makes your heart work harder and traps the fluid in your body for longer. Special Instructions: Take all of your medications as directed and remember to keep all of your doctor's appointments and follow-up as needed. Your triglyceride levels were elevated at 171, recommend continuation of daily Plavix and rosuvastatin and following a heart healthy diet as we discussed. Thank you for allowing us to participate in your care, it was truly a pleasure having you for our patient!!! Discharge Disposition: HOME SELF-CARE
[2021-07-15 13:48] VITALS: BP 124/79; PULSE 90; TEMP 97.6
--- NOTE | 2021-07-15 15:27 | EST ---
EXERCISE STRESS AGE: 56 SEX: M HT: 5'11" WT: 239 lbs PROTOCOL: Thomas STAGE: 3 DURATION OF EXERCISE: 8:00 HEART RATE REST: 82 BLOOD PRESSURE REST: 139/76 MAXIMUM HEART RATE ACHIEVED: 154 MAXIMUM BLOOD PRESSURE: 198/68 85% MPHR: 138 100% MPHR: 162 METS: 9.7 INDICATIONS: @@ CLINICAL INFORMATION: Baseline rhythm is sinus mechanism, rate of 82, left axis deviation. Cannot exclude anterior wall myocardial infarction. Baseline blood pressure 139/76 mmHg. Patient exercised on Thomas protocol for 9 minutes 40 seconds, reaching a peak rate of 154 beats per minute, peak blood pressure 175/61 mmHg. Test was terminated secondary to fatigue. There was no chest pain. Electrocardiograph monitoring revealed rare PVCs. There was a [address]-segment depression in the inferolateral leads that resolved gradually in recovery. FINDINGS: 1. Average exercise tolerance with no chest discomfort. 2. Positive electrocardiograph stress testing with [address]-segment depression at peak exercise. If clinically indicated, a stress imaging test will be helpful. MMODL / IJN: [id number] /
== END 2021-07-15 13:56 | disposition home or self-care (01) ==
LOC: EC 11:23 → 6NMEDSUR 14:09
PROVIDERS: ADMIT Internal Medicine; ATTEND Internal Medicine
DX: R07.9 Chest pain, unspecified (principal); E78.1 Pure hyperglyceridemia; I08.1 Rheumatic disorders of both mitral and tricuspid valves; E11.51 Type 2 diabetes mellitus with diabetic peripheral angiopathy without gangrene; I10 Essential (primary) hypertension; E78.5 Hyperlipidemia, unspecified; E11.42 Type 2 diabetes mellitus with diabetic polyneuropathy; Z87.891 Personal history of nicotine dependence; Z95.820 Peripheral vascular angioplasty status with implants and grafts; Z85.47 Personal history of malignant neoplasm of testis; G47.33 Obstructive sleep apnea (adult) (pediatric); Z92.3 Personal history of irradiation; Z86.010 Personal history of colon polyps; Z98.890 Other specified postprocedural states; Z80.8 Family history of malignant neoplasm of other organs or systems; Z83.3 Family history of diabetes mellitus; Z82.49 Family history of ischemic heart disease and other diseases of the circulatory system; Z79.84 Long term (current) use of oral hypoglycemic drugs; Z79.02 Long term (current) use of antithrombotics/antiplatelets; Z79.82 Long term (current) use of aspirin; Z79.899 Other long term (current) drug therapy
CPT/HCPCS: 96372 ×3; 99285; 36415; 93005; 93017; 93306; 80061; 80053; 83735; 84484; 85025; 85610; 85730; 71046; 78452; G0378 ×2; A9500; J1644 ×2

== ENCOUNTER 2021-07-17 00:55 | Observation (INO) | payer OTHER ==
[2021-07-17 01:47] LABS: Basophils % (A) 0 %; Eosinophils % (A) 0 %; HCT 41.6 % (39.0-53.0); Lymphocytes # (A) 1.3 k/uL (1.0-4.8); Lymphocytes % (A) 11 %; MCHC 33.8 g/dL (31.0-37.0); MCV 91.9 fL (80.0-100.0); Mean Platelet Volume 6.9; Monocytes # (A) 0.3 k/uL (0-1.0); Monocytes % (A) 3 %; Neutrophils # (A) 9.5 k/uL (1.3-7.7); Neutrophils % (A) 84 %; Platelet Count 311 k/uL (150-450); RBC 4.52 m/uL (4.30-5.90); RDW 14.4 % (11.5-15.5); WBC 11.3 k/uL (3.8-10.6)
[2021-07-17 01:56] LABS: INR 0.9 (<1.2); Partial Thromboplastin Time 22.3 sec (22.0-30.0); Prothrombin Time 10.2 sec (9.0-12.0)
[2021-07-17 01:58] LABS: ALT 27 U/L (4-49); AST 32 U/L (17-59); African American GFR (CKD) >90 (>60 ml/min/1.73 sqM); Albumin 4.6 g/dL (3.5-5.0); Alkaline Phosphatase 50 U/L (38-126); Anion Gap 14 mmol/L; Blood Urea Nitrogen 19 mg/dL (9-20); Calcium 9.4 mg/dL (8.4-10.2); Carbon Dioxide 20 mmol/L (22-30); Chloride 97 mmol/L (98-107); Glucose 153 mg/dL (74-99); Magnesium 1.8 mg/dL (1.6-2.3); Non-African American GFR(CKD) 88 (>60 ml/min/1.73 sqM); Potassium 4.2 mmol/L (3.5-5.1); Sodium 131 mmol/L (137-145); Total Bilirubin 0.7 mg/dL (0.2-1.3); Total Protein 7.5 g/dL (6.3-8.2)
--- NOTE | 2021-07-17 02:26 | XR ---
EXAMINATION TYPE: XR chest 2V DATE OF EXAM: 07/17/2021 COMPARISON: 07/14/2021 HISTORY: Chest pain TECHNIQUE: FINDINGS: Heart and mediastinum are normal. Lungs are clear. Diaphragm is normal. Bony thorax appears normal. IMPRESSION: Normal chest. No change.
--- NOTE | 2021-07-17 04:16 | ED ---
Chest Pain HPI - General Chief Complaint: Chest Pain Stated Complaint: Chest Pain, arm numbness Time Seen by Provider: 07/17/21 04:15 Source: patient, family Mode of arrival: ambulatory Limitations: no limitations - Related Data Home Medications Medication Instructions Recorded Confirmed Brimonidine 0.025% 1 drop RIGHT EYE BID 07/14/21 07/14/21 Clopidogrel Bisulfate [Plavix] 75 mg PO W/SUPPER 07/14/21 07/14/21 Pioglitazone HCl 30 mg PO W/SUPPER 07/14/21 07/14/21 Rosuvastatin Calcium 20 mg PO W/SUPPER 07/14/21 07/14/21 amLODIPine [Norvasc] 10 mg PO W/SUPPER 07/14/21 07/14/21 glipiZIDE XL [Glucotrol XL] 2.5 mg PO W/SUPPER 07/14/21 07/14/21 lisinopriL 10 mg PO W/SUPPER 07/14/21 07/14/21 Allergies Allergy/AdvReac Type Severity Reaction Status Date / Time No Known Allergies Allergy Verified 07/17/21 01:04 Review of Systems ROS Statement: Those systems with pertinent positive or pertinent negative responses have been documented in the HPI. ROS Other: All systems not noted in ROS Statement are negative. EKG Findings - EKG Comments: EKG Findings:: EKG is sinus rhythm 99 OH 134 QRS 42 QTC 407 Past Medical History Past Medical History: Cancer, Diabetes Mellitus, Hyperlipidemia, Hypertension, Sleep Apnea/CPAP/BIPAP, Vascular Disorder Additional Past Medical History / Comment(s): L testicular cancer 2001 with surgery/radiation, NIDDM type II, neuropathy bilateral feet, PVD, GAMAL with Cpap, benign colon polyp History of Any Multi-Drug Resistant Organisms: None Reported Past Surgical History: Breast Surgery Additional Past Surgical History / Comment(s): L groin stent, L orchiectomy, L breast benign lumpectomy, colonoscopies. Past Anesthesia/Blood Transfusion Reactions: No Reported Reaction Past Psychological History: No Psychological Hx Reported Smoking Status: Former smoker Past Alcohol Use History: None Reported Past Drug Use History: Marijuana - Past Family History Mother Family Medical History: Cancer Additional Family Medical History / Comment(s): Mother is . She had some form of blood cancer and heart problems. Father Family Medical History: Coronary Artery Disease (CAD), Diabetes Mellitus Additional Family Medical History / Comment(s): Father is living. 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
[2021-07-17] MEDS ORDERED: MORPHINE SULFATE 4 MG/ML SYRINGE IV PRN (05:44)
[2021-07-17] MEDS ORDERED: NITROGLYCERIN SL TABS 0.4 MG TAB SUBLINGUAL PRN (05:44)
[2021-07-17] MEDS ORDERED: ASPIRIN 81 MG PO STA (05:44)
[2021-07-17] MEDS ORDERED: HEPARIN SODIUM 1,000 UN/ML (10ML VL) IV ONE (05:44)
[2021-07-17] MEDS ORDERED: HEPARIN SOD,PORK IN 0.45% NACL 25,000 UNIT in 0.45% NACL 1 250ML.BAG IV SCH (05:45)
[2021-07-17] MEDS ORDERED: MAG HYDROX/AL HYDROX/SIMETH 30 ML, HYOSCYAMINE ELIXIR 10 ML, LIDOCAINE VISCOUS 2% 10 ML PO ONE ×3 (09:51)
--- NOTE | 2021-07-17 13:45 | P.CRDCN ---
History of Present Illness Consult date: 07/17/21 History of present illness: HISTORY OF PRESENT ILLNESS: This is a 56-year-old male with a past medical history significant for hypertension, hyperlipidemia, diabetes, and former nicotine dependence. Patient follows in the office with Dr. Chadwick. We have been asked to see the patient in consultation for chest pain. Patient examined at the bedside. Patient reports chest pain after eating a marijuana brownie. He reports chest pain that lasted for 14 hours. He felt nauseous but did not vomit. He states he took his dads sublingual nitro which helped his pain. He denies any SOB. He currently denies chest pain or pressure. The patient was just hospitalized this week for chest pain. He underwent echocardiogram at that time revealing ejection fraction 55- 60%, trace to mild MR, and trace TR. Patient also underwent Cardiolite stress test which was negative for ischemia. * EKG reveals sinus mechanism with no signs of acute ischemia * Chest xray negative for acute process * Laboratory data: WBC 11.3. Hemoglobin 14.0. Platelet count 311. Sodium 131. Potassium 4.2. BUN 19. Creatinine 0.95. Magnesium 1.8. Troponin negative 2 * Current home cardiac medications include lisinopril 10 mg daily, Norvasc 10 mg daily, Crestor 20 mg daily, Plavix 75 mg daily REVIEW OF SYSTEMS: At the time of my exam: CONSTITUTIONAL: Denies fever or chills. HEENT: Denies blurred vision, vision changes, or eye pain. Denies hemoptysis CARDIOVASCULAR: Denies chest pain. Denies orthopnea. Denies PND. Denies palpitations RESPIRATORY: Denies shortness of breath. GASTROINTESTINAL: Denies abdominal pain. Denies nausea or vomiting. HEMATOLOGIC: Denies bleeding disorders. GENITOURINARY: Denies any blood in urine. SKIN: Denies pruitis. Denies rash. PHYSICAL EXAM: VITAL SIGNS: Reviewed. GENERAL: Well-developed in no acute distress. HEENT: Head is normocephalic. Pupils are equal, round. Sclerae anicteric. Mucous membranes of the mouth are moist. Neck supple. No JVD or thyromegaly LUNGS: Respirations even and unlabored. Lungs essentially clear to auscultation bilaterally. HEART: Regular rate and rhythm. S1 and S2 heard. ABDOMEN: Soft. Nondistended. Nontender. EXTREMITIES: Normal range of motion. No clubbing or cyanosis. Peripheral pulses intact. No lower extremity edema NEUROLOGIC: Awake and alert. Oriented x 3. ASSESSMENT: Chest pain with negative stress test this week Peripheral vascular disease Hypertension Diabetes Hyperlipidemia Marijuana use PLAN: Acute coronary event has been ruled out. The patient just had a negative stress test performed this week in the hospital. The patient was advised to abstain from marijuana. He may be discharged home today from a cardiac standpoint and follow-up on an outpatient basis. Nurse practitioner note has been reviewed by physician. Signing provider agrees with the documented findings, assessment, and plan of care. Past Medical History Past Medical History: Cancer, Diabetes Mellitus, Hyperlipidemia, Hypertension, Sleep Apnea/CPAP/BIPAP, Vascular Disorder Additional Past Medical History / Comment(s): L testicular cancer 2001 with surgery/radiation, NIDDM type II, neuropathy bilateral feet, PVD, GAMAL with Cpap, benign colon polyp History of Any Multi-Drug Resistant Organisms: None Reported Past Surgical History: Breast Surgery Additional Past Surgical History / Comment(s): L groin stent, L orchiectomy, L breast benign lumpectomy, colonoscopies. Past Anesthesia/Blood Transfusion Reactions: No Reported Reaction Past Psychological History: No Psychological Hx Reported Smoking Status: Former smoker Past Alcohol Use History: None Reported Past Drug Use History: Marijuana - Past Family History Mother Family Medical History: Cancer Additional Family Medical History / Comment(s): Mother is . She had some form of blood cancer and heart problems. Father Family Medical History: Coronary Artery Disease (CAD), Diabetes Mellitus Additional Family Medical History / Comment(s): Father is living. Medications and Allergies Home Medications Medication Instructions Recorded Confirmed Type Brimonidine 0.025% 1 drop RIGHT EYE BID 07/14/21 07/17/21 History Clopidogrel Bisulfate [Plavix] 75 mg PO W/SUPPER 07/14/21 07/17/21 History Pioglitazone HCl 30 mg PO W/SUPPER 07/14/21 07/17/21 History Rosuvastatin Calcium 20 mg PO W/SUPPER 07/14/21 07/17/21 History amLODIPine [Norvasc] 10 mg PO W/SUPPER 07/14/21 07/17/21 History glipiZIDE XL [Glucotrol XL] 2.5 mg PO W/SUPPER 07/14/21 07/17/21 History lisinopriL 10 mg PO W/SUPPER 07/14/21 07/17/21 History Allergies Allergy/AdvReac Type Severity Reaction Status Date / Time No Known Allergies Allergy Verified 07/17/21 07:16 Physical Exam Vitals: Vital Signs Temp Pulse Pulse Resp BP Pulse Ox 07/17/21 09:00 66 18 134/78 97 07/17/21 07:14 73 20 161/80 98 07/17/21 05:05 97.9 F 77 20 147/61 95 07/17/21 05:04 76 07/17/21 01:00 97.6 F 114 H 22 189/91 95 Intake and Output 07/16/21 07/17/21 07/17/21 22:59 06:59 14:59 Other: Weight 108.862 kg Results 07/17/21 01:22 07/17/21 01:22 Cardiac Enzymes 07/17/21 07/17/21 07/17/21 Range/Units 01:22 01:22 06:39 AST 32 (17-59) U/L Troponin I <0.012 <0.012 (0.000-0.034) ng/mL Coagulation 07/17/21 Range/Units 01:22 PT 10.2 (9.0-12.0) sec APTT 22.3 (22.0-30.0) sec CBC 07/17/21 Range/Units 01:22 WBC 11.3 H (3.8-10.6) k/uL RBC 4.52 (4.30-5.90) m/uL Hgb 14.0 (13.0-17.5) gm/dL Hct 41.6 (39.0-53.0) % Plt Count 311 (150-450) k/uL Comprehensive Metabolic Panel 07/17/21 Range/Units 01:22 Sodium 131 L (137-145) mmol/L Potassium 4.2 (3.5-5.1) mmol/L Chloride 97 L (98-107) mmol/L Carbon Dioxide 20 L (22-30) mmol/L BUN 19 (9-20) mg/dL Creatinine 0.95 (0.66-1.25) mg/dL Glucose 153 H (74-99) mg/dL Calcium 9.4 (8.4-10.2) mg/dL AST 32 (17-59) U/L ALT 27 (4-49) U/L Alkaline Phosphatase 50 (38-126) U/L Total Protein 7.5 (6.3-8.2) g/dL Albumin 4.6 (3.5-5.0) g/dL Current Medications Generic Name Dose Route Start Last Admin Trade Name Freq PRN Reason Stop Dose Admin Amlodipine Besylate 10 mg 07/17/21 17:30 Amlodipine 10 Mg Tab PO W/SUPPER JENNIFER Atorvastatin Calcium 40 mg 07/17/21 17:30 Atorvastatin 40 Mg Tab PO W/SUPPER JENNIFER Clopidogrel Bisulfate 75 mg 07/17/21 17:30 Clopidogrel 75 Mg Tab PO W/SUPPER JENNIFER Lisinopril 10 mg 07/17/21 17:30 Lisinopril 10 Mg Tab PO W/SUPPER JENNIFER Morphine Sulfate 4 mg 07/17/21 05:44 Morphine Sulfate 4 Mg/Ml Syringe IV Q4HR PRN Chest Pain Nitroglycerin 0.4 mg 07/17/21 05:44 Nitroglycerin Sl Tabs 0.4 Mg Tab SUBLINGUAL Q5M PRN Chest Pain Intake and Output 07/16/21 07/17/21 07/17/21 22:59 06:59 14:59 Other: Weight 108.862 kg 07/17/21 01:22 07/17/21 01:22
--- NOTE | 2021-07-17 15:25 | P.HPIM ---
History of Present Illness H&P Date: 07/17/21 History of presenting illness: Patient is a very pleasant 56-year-old male with history of former nicotine dependence smoking a half a pack per day 25 years quit in 2003, daily marijuana use, hypertension, hyperlipidemia, rni-[id number] diabetes mellitus type 2, peripheral vascular disease status post stent in left groin, and testicular cancer. He presented to the emergency department with a chief complaint of chest pain. He was recently hospitalized for similar complaints from 07/14/21 through 07/15/21 in which patient underwent a cardiac workup including a stress t est ruling out an acute coronary event. Patient states since his discharge he was doing well and took the advice that was given to him very seriously in regards to stopping smoking marijuana. Patient states since discharge he has been using cannabis edibles and making marijuana brownies. Patient reports he has had no chest pain since discharge and yesterday he ate a marijuana brownie and developed a sharp pain to left anterior chest that lasted approximately 14 hours accompanied by nausea. Patient states initially he thought this was heartburn but when it did not go away he took two sublingual nitroglycerin tablets which resulted in resolution of the pain so he came to the emergency department for evaluation. He denied having any other complaints including headache, lightheadedness, dizziness, cough, congestion, shortness of breath, dyspnea with exertion, vomiting, or experiencing any numbness/2./weakness in extremities. In the emergency department, patient was seen and fully evaluated. EKG revealed normal sinus rhythm and 99 bpm with no noted T-wave or ST abnormalities. Chest x-ray was negative for acute cardiopulmonary process. CBC revealed mild leukocytosis with a WBC count of 11.3 and BMP revealed mild hyponatremia with sodium of 131. Troponin less than 0.012. Patient admitted under our services with consult cardiology. Review of systems: Pertinent positives and negatives as discussed in HPI, a complete review of systems was performed and all other systems are negative. Physical exam: Vital signs reviewed and stable. General: Nontoxic, no distress and appears stated age. Derm: Skin warm and dry, normal coloration for ethnicity. Head: Atraumatic, normocephalic and symmetric. Eyes: EOMs intact, no lid lag, and anicteric sclera Mouth: no lip lesions, mucus membranes moist Cardiovascular: regular rate and rhythm with normal S1S2, no murmur, positive posterior tibial pulses bilaterally, and cap refill < 2 seconds. Lungs: Respirations even, regular, and unlabored on room air. Lungs CTA bilaterally, no rhonchi, no rales, no wheezing, and no accessory muscle usage. Abdominal: soft, nontender to palpation, no guarding, no appreciable organomeg edgar Ext: ROM intact. No gross muscle atrophy, no edema, no contractures Neuro: Speech clear, face symmetrical and CN II-XII grossly intact with no noted focal neuro deficits Psych: Alert and oriented to person, place, time, and situation. Appropriate and pleasant affect. Assessment and Plan of Care: Atypical Chest pain, rule out acute coronary event -Cardiology consult, appreciate further recommendations -Telemetry monitoring -Trend troponins -Cardiac diet -Aspirin, atorvastatin, and metoprolol -Lipid profile completed 07/16/19 revealing hypertriglyceridemia with triglycerides of 171 -Echocardiogram completed 07/15/21 resulting in EF 55-60% with no significant valvular abnormalities and moderate concentric left ventricular hypertrophy. -Stress test also completed 07/15/21 showing no scintigraphic evidence for reversible ischemia. Peripheral vascular disease status post stenting to left groin -Continue daily aspirin, rosuvastatin, and Plavix. Hypertension -Monitor vital signs and continue daily medication regimen with amlodipine and lisinopril. Hyperlipidemia -Continue daily medication regimen with rosuvastatin 20 mg nightly. -Heart healthy diet -Lipid profile with a.m. labs Type II bsy-vmwmnpk-[id number] diabetes mellitus -Hold glipizide and pioglitazone and place patient on glycemic protocol with NovoLog sliding scale. Daily cannabis use -Encourage and educate patient on the importance of cessation of all forms of cannabis use and the risks associated with continued use. Former nicotine dependence -Patient smoked a half a pack of cigarettes per day 25 years, quit in 2003. The patient is admitted with an anticipated less than 2 midnight stay for evaluation of chest pain. CODE STATUS: Full code DVT prophylaxis: Heparin Discussed with: Patient and RN Anticipated discharge date: Tomorrow morning Anticipated discharge place: Home A total of 40 minutes was spent on the care of this complex patient more than 50% of the time was spent in counseling and care coordination. Past Medical History Past Medical History: Cancer, Diabetes Mellitus, Hyperlipidemia, Hypertension, Sleep Apnea/CPAP/BIPAP, Vascular Disorder Additional Past Medical History / Comment(s): L testicular cancer 2001 with surgery/radiation, NIDDM type II, neuropathy bilateral feet, PVD, GAMAL with Cpap, benign colon polyp History of Any Multi-Drug Resistant Organisms: None Reported Past Surgical History: Breast Surgery Additional Past Surgical History / Comment(s): L groin stent, L orchiectomy, L breast benign lumpectomy, colonoscopies. Past Anesthesia/Blood Transfusion Reactions: No Reported Reaction Past Psychological History: No Psychological Hx Reported Smoking Status: Former smoker Past Alcohol Use History: None Reported Past Drug Use History: Marijuana - Past Family History Mother Family Medical History: Cancer Additional Family Medical History / Comment(s): Mother is . She had some form of blood cancer and heart problems. Father Family Medical History: Coronary Artery Disease (CAD), Diabetes Mellitus Additional Family Medical History / Comment(s): Father is living. Medications and Allergies Home Medications Medication Instructions Recorded Confirmed Type Brimonidine 0.025% 1 drop RIGHT EYE BID 07/14/21 07/17/21 History Clopidogrel Bisulfate [Plavix] 75 mg PO W/SUPPER 07/14/21 07/17/21 History Pioglitazone HCl 30 mg PO W/SUPPER 07/14/21 07/17/21 History Rosuvastatin Calcium 20 mg PO W/SUPPER 07/14/21 07/17/21 History amLODIPine [Norvasc] 10 mg PO W/SUPPER 07/14/21 07/17/21 History glipiZIDE XL [Glucotrol XL] 2.5 mg PO W/SUPPER 07/14/21 07/17/21 History lisinopriL 10 mg PO W/SUPPER 07/14/21 07/17/21 History Allergies Allergy/AdvReac Type Severity Reaction Status Date / Time No Known Allergies Allergy Verified 07/17/21 07:16 Physical Exam Vitals: Vital Signs Temp Pulse Pulse Resp BP Pulse Ox 07/17/21 07:14 73 20 161/80 98 07/17/21 05:05 97.9 F 77 20 147/61 95 07/17/21 05:04 76 07/17/21 01:00 97.6 F 114 H 22 189/91 95 Intake and Output 07/16/21 07/17/21 07/17/21 22:59 06:59 14:59 Other: Weight 108.862 kg Results CBC & Chem 7: 07/17/21 01:22 07/17/21 01:22 Labs: Abnormal Lab Results - Last 24 Hours (Table) 07/17/21 07/17/21 Range/Units 01:22 01:22 WBC 11.3 H (3.8-10.6) k/uL Neutrophils # 9.5 H (1.3-7.7) k/uL Sodium 131 L (137-145) mmol/L Chloride 97 L (98-107) mmol/L Carbon Dioxide 20 L (22-30) mmol/L Glucose 153 H (74-99) mg/dL
--- NOTE | 2021-07-17 15:34 | P.DS ---
Providers Date of admission: 07/17/21 05:44 Expected date of discharge: 07/17/21 Attending physician: Jorge A Vázquez MD Primary care physician: Physician Nonstaff Hospital Course: Discharge Diagnosis: Chest pain, acute coronary event ruled out Hypertriglyceridemia, recommend continuation of daily rosuvastatin, Plavix, and heart healthy diet. Peripheral vascular disease status post stenting to left groin, Continue daily rosuvastatin and Plavix. Hypertension, Monitor vital signs and continue daily medication regimen with amlodipine and lisinopril. Hyperlipidemia, Continue daily medication regimen with rosuvastatin 20 mg nightly. Mild hyperinflation of lungs possible underlying emphysema, recommend follow up outpatient with pulmonology for PFTs Type II lvq-udeeihj-njbbqzdkn diabetes mellitus, continue daily medication regimen with glipizide and pioglitazone Daily cannabis use, recommend cessation of all forms of marijuana use Former nicotine dependence, Patient smoked a half a pack of cigarettes per day 25 years, quit in 2003. Hospital Course: Patient is a very pleasant 56-year-old male with history of former nicotine dependence smoking a half a pack per day 25 years quit in 2003, daily marijuana use, hypertension, hyperlipidemia, bvh-cobchau-hstohlxij diabetes mellitus type 2, peripheral vascular disease status post stent in left groin, and testicular cancer. He presented to the emergency department with a chief complaint of chest pain. He was recently hospitalized for similar complaints from 07/14/21 through 07/15/21 in which patient underwent a cardiac workup including a stress test ruling out an acute coronary event. Patient states since his discharge he was doing well and took the advice that was given to him very seriously in regards to stopping smoking marijuana. Patient states since discharge he has been using cannabis edibles and making marijuana brownies. Patient reports he has had no chest pain since discharge and yesterday he ate a marijuana brownie and developed a sharp pain to left anterior chest that lasted approximately 14 hours accompanied by nausea. Patient states initially he thought this was heartburn but when it did not go away he took two sublingual nitroglycerin tablets which resulted in resolution of the pain so he came to the emergency department for evaluation. He denied having any other complaints including headache, lightheadedness, dizziness, cough, congestion, shortness of breath, dyspnea with exertion, vomiting, or experiencing any numbness/2./weakness in extremities. In the emergency department, patient was seen and fully evaluated. EKG revealed normal sinus rhythm and 99 bpm with no noted T-wave or ST abnormalities. Chest x-ray was negative for acute cardiopulmonary process. CBC revealed mild leukocytosis with a WBC count of 11.3 and BMP revealed mild hyponatremia with sodium of 131. Troponin less than 0.012. Patient admitted under our services with consult cardiology. Troponins were trended and all were less than 0.0123 draws. Patient is medically stable with vital signs unremarkable. Patient reports chest pain has remained completely resolved since arrival to our facility. Patient did report an episode of acid reflux and was given a GI cocktail resulting in relief/resolution of these symptoms. Cardiology evaluated ruling out an acute coronary event and advising follow-up on an outpatient basis. Patient medically stable for discharge home at this time and strongly encouraged to stop use of all cannabis products. Physical exam: Vital signs reviewed and stable. General: Nontoxic, no distress and appears stated age. Derm: Skin warm and dry, normal coloration for ethnicity. Head: Atraumatic, normocephalic and symmetric. Eyes: EOMs intact, no lid lag, and anicteric sclera Mouth: no lip lesions, mucus membranes moist Cardiovascular: regular rate and rhythm with normal S1S2, no murmur, positive posterior tibial pulses bilaterally, and cap refill < 2 seconds. Lungs: Respirations even, regular, and unlabored on room air. Lungs CTA bilaterally, no rhonchi, no rales, no wheezing, and no accessory muscle usage. Abdominal: soft, nontender to palpation, no guarding, no appreciable organomegaly Ext: ROM intact. No gross muscle atrophy, no edema, no contractures Neuro: Speech clear, face symmetrical and CN II-XII grossly intact with no noted focal neuro deficits Psych: Alert and oriented to person, place, time, and situation. Appropriate and pleasant affect. A total of 38 minutes of time were spent preparing this complex discharge summary. Patient Condition at Discharge: Stable Plan - Discharge Summary Discharge Rx Participant: No New Discharge Prescriptions: Continue Brimonidine 0.025% 1 drop RIGHT EYE BID amLODIPine [Norvasc] 10 mg PO W/SUPPER Clopidogrel Bisulfate [Plavix] 75 mg PO W/SUPPER glipiZIDE XL [Glucotrol XL] 2.5 mg PO W/SUPPER lisinopriL 10 mg PO W/SUPPER Pioglitazone HCl 30 mg PO W/SUPPER Rosuvastatin Calcium 20 mg PO W/SUPPER Discharge Medication List Brimonidine 0.025% 1 drop RIGHT EYE BID 07/14/21 [History] Clopidogrel Bisulfate [Plavix] 75 mg PO W/SUPPER 07/14/21 [History] Pioglitazone HCl 30 mg PO W/SUPPER 07/14/21 [History] Rosuvastatin Calcium 20 mg PO W/SUPPER 07/14/21 [History] amLODIPine [Norvasc] 10 mg PO W/SUPPER 07/14/21 [History] glipiZIDE XL [Glucotrol XL] 2.5 mg PO W/SUPPER 07/14/21 [History] lisinopriL 10 mg PO W/SUPPER 07/14/21 [History] Follow up Appointment(s)/Referral(s): Venu Sharif MD [STAFF PHYSICIAN] - 1 Week Clint Wright MD [REFERRING] - 1 Week Patient Instructions/Handouts: Chest Pain (ED) Activity/Diet/Wound Care/Special Instructions: Activity: As tolerated. Take breaks as needed. Diet: Heart healthy and carb consistent diet. Avoid salts, or foods with hidden salts such as canned or boxed foods and frozen dinners. Extra salt makes your heart work harder and traps the fluid in your body for longer. Special Instructions: Take all of your medications as directed and remember to keep all of your doctor's appointments and follow-up as needed. Strongly encourage you to stop use of all cannabis products. Thank you for allowing us to participate in your care, it was truly a pleasure having you for our patient!!! Discharge Disposition: HOME SELF-CARE
[2021-07-17] MEDS ORDERED: lisinopriL 10 MG TAB PO SCH (17:30)
[2021-07-17] MEDS ORDERED: amLODIPine 10 MG TAB PO SCH (17:30)
[2021-07-17] MEDS ORDERED: CLOPIDOGREL 75 MG TAB PO SCH (17:30)
[2021-07-17] MEDS ORDERED: ATORVASTATIN 40 MG TAB PO SCH (17:30)
[2021-07-17 20:04] VITALS: RESP 18
[2021-07-17 21:52] VITALS: BP 148/89; PULSE 78; TEMP 97.6
[2021-07-18] MEDS ORDERED: ASPIRIN 325 MG TAB PO SCH (09:00)
== END 2021-07-17 21:28 | disposition home or self-care (01) ==
LOC: EC 00:55 → 6NMEDSUR 05:44
PROVIDERS: ADMIT Internal Medicine; ATTEND Internal Medicine
DX: R07.89 Other chest pain (principal); E78.1 Pure hyperglyceridemia; F12.90 Cannabis use, unspecified, uncomplicated; E87.1 Hypo-osmolality and hyponatremia; K21.9 Gastro-esophageal reflux disease without esophagitis; E11.51 Type 2 diabetes mellitus with diabetic peripheral angiopathy without gangrene; I11.9 Hypertensive heart disease without heart failure; E78.5 Hyperlipidemia, unspecified; G47.33 Obstructive sleep apnea (adult) (pediatric); E11.42 Type 2 diabetes mellitus with diabetic polyneuropathy; R11.0 Nausea; D72.829 Elevated white blood cell count, unspecified; Z71.89 Other specified counseling; Z79.84 Long term (current) use of oral hypoglycemic drugs; Z79.02 Long term (current) use of antithrombotics/antiplatelets; Z79.899 Other long term (current) drug therapy; Z85.47 Personal history of malignant neoplasm of testis; Z86.010 Personal history of colon polyps; Z92.3 Personal history of irradiation; Z90.79 Acquired absence of other genital organ(s); Z95.828 Presence of other vascular implants and grafts; Z87.891 Personal history of nicotine dependence; Z83.3 Family history of diabetes mellitus; Z82.49 Family history of ischemic heart disease and other diseases of the circulatory system; Z80.7 Family history of other malignant neoplasms of lymphoid, hematopoietic and related tissues
CPT/HCPCS: 96374; 99285; 36415; 93005; 80053; 83735; 84484; 85025; 85610; 85730; 71046; G0378; J1644 ×2

== ENCOUNTER 2024-04-06 16:17 | Observation (INO) | payer OTHER ==
[2024-04-06 17:03] LABS: Basophils # (A) 0.1 k/uL (0-0.2); Basophils % (A) 1 %; Eosinophils # (A) 0.2 k/uL (0-0.7); Eosinophils % (A) 2 %; HCT 44.3 % (39.0-53.0); HGB 14.7 gm/dL (13.0-17.5); Lymphocytes # (A) 2.3 k/uL (1.0-4.8); Lymphocytes % (A) 27 %; MCH 29.3 pg (25.0-35.0); MCHC 33.2 g/dL (31.0-37.0); Mean Platelet Volume 6.6; Monocytes # (A) 0.4 k/uL (0-1.0); Monocytes % (A) 5 %; Neutrophils # (A) 5.5 k/uL (1.3-7.7); Neutrophils % (A) 64 %; Platelet Count 256 k/uL (150-450); RBC 5.04 m/uL (4.30-5.90); RDW 13.1 % (11.5-15.5); WBC 8.6 k/uL (3.8-10.6)
[2024-04-06 17:18] LABS: INR 0.9 (<1.2); Prothrombin Time 10.1 sec (10.0-12.5)
[2024-04-06 17:25] LABS: ALT 43 U/L (4-49); AST 32 U/L (17-59); African American GFR (CKD) >90 (>60 ml/min/1.73 sqM); Albumin 4.7 g/dL (3.5-5.0); Alkaline Phosphatase 60 U/L (38-126); Anion Gap 9 mmol/L; Blood Urea Nitrogen 15 mg/dL (9-20); Calcium 9.9 mg/dL (8.4-10.2); Carbon Dioxide 25 mmol/L (22-30); Chloride 104 mmol/L (98-107); Glucose 133 mg/dL (74-99); Lipase 87 U/L (23-300); Magnesium 1.9 mg/dL (1.6-2.3); Non-African American GFR(CKD) >90 (>60 ml/min/1.73 sqM); Partial Thromboplastin Time 18.7 sec (22.0-30.0); Potassium 4.1 mmol/L (3.5-5.1); Sodium 138 mmol/L (137-145); Total Bilirubin 0.4 mg/dL (0.2-1.3); Total Protein 7.2 g/dL (6.3-8.2)
[2024-04-06 17:33] LABS: NT-Pro-B-Type Natriuretic Pept 54 pg/mL
--- NOTE | 2024-04-06 17:33 | ED ---
General Adult HPI - General Chief complaint: Chest Pain Stated complaint: chest pain Time Seen by Provider: 04/06/24 16:39 Source: patient Mode of arrival: EMS Limitations: no limitations - History of Present Illness Initial comments: This is a pleasant 59-year-old woman history diabetes, hypertension presenting today for left-sided chest pain that radiated down his arm and into his jaw intermittently over the last 2 weeks. PCP did an EKG today and sent to the patient to the ER for concerning findings. Patient received 3 to 24 mg aspirin and 2 sublingual nitroglycerin prior to arrival in the ER which he states has improved his pain and he is currently asymptomatic. Presented for similar symptoms about 3 years ago and was admitted to the hospital with a normal stress test and never had a cardiac cath performed. - Related Data Home Medications Medication Instructions Recorded Confirmed Clopidogrel Bisulfate [Plavix] 75 mg PO W/SUPPER 07/14/21 04/06/24 Rosuvastatin Calcium 20 mg PO W/SUPPER 07/14/21 04/06/24 amLODIPine [Norvasc] 10 mg PO W/SUPPER 07/14/21 04/06/24 Aspirin [Roselle Aspirin EC] 81 mg PO W/SUPPER 04/06/24 04/06/24 Isosorbide Mononitrate ER [Imdur] 60 mg PO W/SUPPER 04/06/24 04/06/24 Tamsulosin [Flomax] 0.4 mg PO PC-SUPPER 04/06/24 04/06/24 glipiZIDE XL [Glucotrol Xl] 5 mg PO BID-W/MEALS 04/06/24 04/06/24 lisinopriL [Zestril] 20 mg PO W/SUPPER 04/06/24 04/06/24 Allergies Allergy/AdvReac Type Severity Reaction Status Date / Time No Known Allergies Allergy Verified 04/06/24 17:58 Review of Systems ROS Statement: Those systems with pertinent positive or pertinent negative responses have been documented in the HPI. ROS Other: All systems not noted in ROS Statement are negative. 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 Past Anesthesia/Blood Transfusion Reactions: No Reported Reaction Past Psychological History: No Psychological Hx Reported Smoking Status: Former smoker Past Alcohol Use History: None Reported Past Drug Use History: Marijuana - Past Family History Mother Family Medical History: Cancer Additional Family Medical History / Comment(s): Mother is . She had some form of blood cancer and heart problems. Father Family Medical History: Coronary Artery Disease (CAD), Diabetes Mellitus Additional Family Medical History / Comment(s): Father is living. General Exam - General Exam Comments Initial Comments: PE: CONSTITUTIONAL: No apparent distress, well appearing SKIN: Warm, dry, no jaundice, hives or petechiae EYES: Pupils are equally round, extraocular movements intact without nystagmus, clear conjunctiva, non-icteric sclera HENT: Normocephalic, atraumatic, moist mucus membranes, oropharynx clear without exudates NECK: , Full range of motion, normal appearance PULMONARY: Clear to auscultation without wheezes, rhonchi, or rales, normal excursion, no accessory muscle use and no stridor CARDIOVASCULAR: Regular rate, rhythm, normal S1 and S2. No appreciated murmurs, rubs or gallops. Strong radial pulses with intact distal perfusion. No lower extremity edema GASTROINTESTINAL: Soft, active bowel sounds throughout, non-tender, non- distended, no palpable masses, no rebound or guarding. No hepatosplenomegaly GENITOURINARY: MUSCULOSKELETAL: Extremities have no gross deformity, no edema, redness, or swelling. No calf swelling NEUROLOGIC:_a/o x 3, GCS 15, normal mentation and speech. Moves all extremities x 4 without motor or sensory deficit PSYCHIATRIC:_normal mood and affect, thought process is clear and linear Limitations: no limitations Course Vital Signs 04/06/24 04/06/24 04/06/24 16:32 17:56 19:00 Temperature 98.4 F Pulse Rate 72 71 76 Respiratory 18 18 16 Rate Blood Pressure 175/84 160/82 147/83 O2 Sat by Pulse 97 98 96 Oximetry 04/06/24 04/06/24 19:53 23:19 Temperature Pulse Rate 79 69 Respiratory 18 18 Rate Blood Pressure 148/82 129/66 O2 Sat by Pulse 98 99 Oximetry EKG Findings - EKG Comments: EKG Findings:: Interpretation, sinus rhythm, rate 73 bpm, MI interval 145 ms QRS duration 104 ms, QT/QTc 386/413 ms, normal axis, T wave inversion lead V1, Q- wave lead V1 V2, compared to EKG performed on 07/17/2021 when patient had presented for similar symptoms, Q waves were present then as well, no significant changes from prior next Medical Decision Making - Medical Decision Making Was pt. sent in by a medical professional or institution (, PA, UPHOLSTERER HELPER, urgent care, hospital, or assisted...) When possible be specific @ -No Did you speak to anyone other than the patient for history (EMS, parent, family, police, friend...)? What history was obtained from this source @ -No Did you review nursing and triage notes (agree or disagree)? Why? @ -I reviewed and agree with nursing and triage notes Were old charts reviewed (outside hosp., previous admission, EMS record, old EKG, old radiological studies, urgent care reports/EKG's, assisted records)? Report findings @ -Medical records reviewed, reviewed patient's EKG from 07/18/2023 when patient had presented for similar symptoms, reviewed EKG sent by patient's primary care provider which does not show any changes from the EKG performed in the ER today Differential Diagnosis (chest pain, altered mental status, abdominal pain women, abdominal pain men, vaginal bleeding, weakness, fever, dyspnea, syncope, headache, dizziness, GI bleed, back pain, seizure, CVA, palpatations, mental health, musculoskeletal)? @Differential Chest Pain: Stable Angina, Unstable Angina, STEMI, NSTEMI pericarditis, pleurisy, chostochondirits, Pneumothorax, Musculoskeletal, Esophageal Spasm GERD, Cholecystitis, Pancreatitis, Zoster, this is not meant to be an all-inclusive list. EKG interpreted by me (3pts min.). @ -As above CT interpreted by me (1pt min.). @ -None done U/S interpreted by me (1pt. min.). @ -None done What testing was considered but not performed or refused? (CT, X-rays, U/S, labs)? Why? @ -None What meds were considered but not given or refused? Why? @ -None Did you discuss the management of the patient with other professionals (professionals i.e. , PA, UPHOLSTERER HELPER, lab, RT, psych nurse, administrator social welfare, records supervisor, teacher, juvenile officer, outsole caser)? Give summary @ -No Was smoking cessation discussed for >3mins.? @ -No Was critical care preformed (if so, how long)? @ -No Were there social determinants of health that impacted care today? How? (Homelessness, low income, unemployed, alcoholism, drug addiction, transportation, low edu. Level, literacy, decrease access to med. care, penitentiary, rehab)? @ -No Was there de-escalation of care discussed even if they declined (Discuss DNR or withdrawal of care, Hospice)? @ -No What co-morbidities impacted this encounter? (DM, HTN, Smoking, COPD, CAD, Cancer, CVA, ARF, Chemo, Hep., AIDS, mental health diagnosis, sleep apnea, morbid obesity)? @ HTN, DM Was patient admitted / discharged? Hospital course, mention meds given and route, prescriptions, significant lab abnormalities, going to OR and other pertinent info. @ -Admission- This is a pleasant 59-year gentleman history diabetes, hypertension, presenting today for left-sided chest pain rating to his jaw down his arm intermittently for the last 2 weeks with EKG findings concerning from his primary care provider's office. Plan for chest pain workup including D-dimer, anticipate admission due to elevated heart score. Labs reviewed. Grossly within normal limits. Abnormal values not concerning for acute pathology related to presenting complaint. D-dimer negative Due to elevated heart score, 6, plan for admission. Updated patient to findings and plan of care. He is agreeable with plan of care. Ordered home meds, case discussed with [facility] Man kindly accepts patient for admission. Of note, chest imaging was not ordered with patient's initial orders, due to waiting for D dimer result to decide on imaging. Patient admitted and transported upstairs prior to chest XR. Therefor 1 view portable chest was ord ered. Showed no acute process. Undiagnosed new problem with uncertain prognosis? @ -No Drug Therapy requiring intensive monitoring for toxicity (Heparin, Nitro, Insulin, Cardizem)? @ -No Were any procedures done? @ -No Diagnosis/symptom? @Unstable angina Acute, or Chronic, or Acute on Chronic? acute Uncomplicated (without systemic symptoms) or Complicated (systemic symptoms)? complicated Side effects of treatment? @ -No Exacerbation, Progression, or Severe Exacerbation? @ -No Poses a threat to life or bodily function? How? (Chest pain, USA, ME, pneumonia, PE, COPD, DKA, ARF, appy, cholecystitis, CVA, Diverticulitis, Homicidal, Suicidal, threat to staff... and all critical care pts) @ Yes, if 2/2 ACS, could result in ME if left unaddressed - Lab Data Result diagrams: 04/06/24 16:53 04/06/24 16:53 Lab Results 04/06/24 04/06/24 04/06/24 Range/Units 16:53 16:53 16:53 WBC 8.6 (3.8-10.6) k/uL RBC 5.04 (4.30-5.90) m/uL Hgb 14.7 (13.0-17.5) gm/dL Hct 44.3 (39.0-53.0) % MCV 88.0 (80.0-100.0) fL MCH 29.3 (25.0-35.0) pg MCHC 33.2 (31.0-37.0) g/dL RDW 13.1 (11.5-15.5) % Plt Count 256 (150-450) k/uL MPV 6.6 Neutrophils % 64 % Lymphocytes % 27 % Monocytes % 5 % Eosinophils % 2 % Basophils % 1 % Neutrophils # 5.5 (1.3-7.7) k/uL Lymphocytes # 2.3 (1.0-4.8) k/uL Monocytes # 0.4 (0-1.0) k/uL Eosinophils # 0.2 (0-0.7) k/uL Basophils # 0.1 (0-0.2) k/uL PT 10.1 (10.0-12.5) sec INR 0.9 (<1.2) APTT 18.7 L (22.0-30.0) sec D-Dimer 0.38 (<0.60) mg/L FEU Sodium 138 (137-145) mmol/L Potassium 4.1 (3.5-5.1) mmol/L Chloride 104 (98-107) mmol/L Carbon Dioxide 25 (22-30) mmol/L Anion Gap 9 mmol/L BUN 15 (9-20) mg/dL Creatinine 0.77 (0.66-1.25) mg/dL Est GFR (CKD-EPI)AfAm >90 (>60 ml/min/1.73 sqM) Est GFR (CKD-EPI)NonAf >90 (>60 ml/min/1.73 sqM) Glucose 133 H (74-99) mg/dL Calcium 9.9 (8.4-10.2) mg/dL Magnesium 1.9 (1.6-2.3) mg/dL Total Bilirubin 0.4 (0.2-1.3) mg/dL AST 32 (17-59) U/L ALT 43 (4-49) U/L Alkaline Phosphatase 60 (38-126) U/L Troponin I (0.000-0.034) ng/mL NT-Pro-B Natriuret Pep 54 pg/mL Total Protein 7.2 (6.3-8.2) g/dL Albumin 4.7 (3.5-5.0) g/dL Lipase 87 (23-300) U/L 04/06/ Range/Units 16:53 WBC (3.8-10.6) k/uL RBC (4.30-5.90) m/uL Hgb (13.0-17.5) gm/dL Hct (39.0-53.0) % MCV (80.0-100.0) fL MCH (25.0-35.0) pg MCHC (31.0-37.0) g/dL RDW (11.5-15.5) % Plt Count (150-450) k/uL MPV Neutrophils % % Lymphocytes % % Monocytes % % Eosinophils % % Basophils % % Neutrophils # (1.3-7.7) k/uL Lymphocytes # (1.0-4.8) k/uL Monocytes # (0-1.0) k/uL Eosinophils # (0-0.7) k/uL Basophils # (0-0.2) k/uL PT (10.0-12.5) sec INR (<1.2) APTT (22.0-30.0) sec D-Dimer (<0.60) mg/L FEU Sodium (137-145) mmol/L Potassium (3.5-5.1) mmol/L Chloride (98-107) mmol/L Carbon Dioxide (22-30) mmol/L Anion Gap mmol/L BUN (9-20) mg/dL Creatinine (0.66-1.25) mg/dL Est GFR (CKD-EPI)AfAm (>60 ml/min/1.73 sqM) Est GFR (CKD-EPI)NonAf (>60 ml/min/1.73 sqM) Glucose (74-99) mg/dL Calcium (8.4-10.2) mg/dL Magnesium (1.6-2.3) mg/dL Total Bilirubin (0.2-1.3) mg/dL AST (17-59) U/L ALT (4-49) U/L Alkaline Phosphatase (38-126) U/L Troponin I <0.012 (0.000-0.034) ng/mL NT-Pro-B Natriuret Pep pg/mL Total Protein (6.3-8.2) g/dL Albumin (3.5-5.0) g/dL Lipase (23-300) U/L Disposition Clinical Impression: Unstable angina Disposition: ADMITTED IP TO THIS HOSP Condition: Good
[2024-04-06] MEDS: amLODIPine 10 MG TAB PO STA (18:01)
[2024-04-06] MEDS ORDERED: NITROGLYCERIN SL TABS 0.4 MG TAB SUBLINGUAL PRN (18:49)
[2024-04-06] MEDS: ASPIRIN 81 MG PO SCH (19:08)
[2024-04-06] MEDS: lisinopriL 20 MG TAB PO SCH (19:34)
[2024-04-06] MEDS: ATORVASTATIN 40 MG TAB PO SCH (19:34)
[2024-04-06] MEDS: ISOSORBIDE MONONITRATE ER 60 MG TAB.ER.24H PO SCH (19:34)
[2024-04-06] MEDS: TAMSULOSIN 0.4 MG CAP.ER.24H PO SCH (19:34)
[2024-04-06 19:46] LABS: Glucose,Whole Blood 145 mg/dL (70-110)
[2024-04-06] MEDS: glipiZIDE 5 MG TAB PO SCH (19:46)
[2024-04-06] MEDS: CLOPIDOGREL 75 MG TAB PO SCH (19:52)
[2024-04-07 01:51] LABS: LDL Cholesterol,Calculated 29.6 mg/dL (0.0-131.0)
--- NOTE | 2024-04-07 03:07 | XR ---
EXAM: XR Chest, 1 View CLINICAL HISTORY: ITS.REASON XR Reason: chest pain, UA TECHNIQUE: Frontal view of the chest. COMPARISON: No relevant prior studies available. FINDINGS: Lungs: No consolidation or mass. Pleural space: No acute findings. Heart: cardiomegaly. Bones/joints: No acute findings. IMPRESSION: No acute cardiopulmonary process.
[2024-04-07 06:12] LABS: Glucose,Whole Blood 152 mg/dL (70-110)
[2024-04-07 07:34] VITALS: RESP 16
[2024-04-07] MEDS: HEPARIN SODIUM,PORCINE 5,000 UNIT/ML 1 ML VIAL SQ SCH (08:08)
[2024-04-07] MEDS: FAMOTIDINE 20 MG/2 ML VIAL IV SCH (08:08)
--- NOTE | 2024-04-07 10:47 | CA ---
Stress Echo Report Carlos Eduardo Canales Age: 59 Gender: M : 1965 Exam Date: 04/07/2024 09:42 Exam Location: [facility] Ht (in): 71 Wt (lb): 240 Ordering Physician: Uvaldo Patel MD ([id number]) Referring Physician: Jorge GARCIA French Binding Folder: Tianna Perdomo RDCS Technologist Procedure CPT: Indication: Chest Pain ICD-9 Codes: Rhythm: Patient History: CHEST PAIN, DIFFICULTY IN BREATHING, PALPITATIONS, HTN, DIABETES, HYPERCHOLESTEROLEMIA, FAMILY HX OF HEARTR DISEASE, PRIOR SMOKER, NUMBNESS IN FACE/NECK Cardiac Medications: Medications in past 24 hours: Contrast: Stress Results Protocol: Thomas Total dose(mL): Exercise Duration (min:sec): 9:[address] Depression (mm): Angina Score: Kaur Score: METS: 10.5 Resting HR: 100 Resting BP: 141 / 75 Peak HR: 167 Peak BP: 202 / 70 Max Predicted HR: 159 105 % Max Predicted HR Target HR: 135 Double Product: [id number] Stress Summary: BP Response: Reason for Termination: MAX EXERTION/TARGET HR Cardiac Symptoms: FATIGUE ECG Analysis Resting ECG: Normal sinus rhythm with poor R-wave progression Stress ECG: Patient exercised on Thomas protocol for 9 minutes achieving 10 mets 85% of predicted maximal heart rate without chest pain at peak exercise there was [address] segment depression noted Arrhythmia: Echo Analysis Resting Echo: Normal left ventricular size wall motion systolic function Peak Echo Analysis: Technically suboptimal peak echo images no obvious exercise induced wall motion abnormalities MEASUREMENTS (Male/Female) Normal Values CONCLUSIONS Good exercise tolerance Mild EKG changes with exercise Negative stress echo Dr. Uvaldo Patel MD (Electronically Signed) Final Date: 07 April 2024 10:46
--- NOTE | 2024-04-07 12:10 | CA ---
Transthoracic Echo Report Name: Carlos Eduardo Canales Age: 59 Gender: M : 1965 Exam Date: 04/07/2024 10:00 Exam Location: [facility] Ht (in): 71 Wt (lb): 240 Ordering Physician: Uvaldo Patel MD ([id number]) Attending/Referring Phys: Jorge GARCIA Fishing Tool Technician [employer] Tianna Perdomo RDCS Procedure CPT: Indications: chest pain Cardiac Hx: Technical Quality: Fair Contrast 1: Total Dose (mL): Contrast 2: Total Dose (mL): MEASUREMENTS (Male / Female) Normal Values 2D ECHO LV Diastolic Diameter PLAX 4.7 cm 4.2 - 5.9 / 3.9 - 5.3 cm LV Systolic Diameter PLAX 3.2 cm IVS Diastolic Thickness 1.2 cm 0.6 - 1.0 / 0.6 - 0.9 cm LVPW Diastolic Thickness 1.3 cm 0.6 - 1.0 / 0.6 - 0.9 cm LV Relative Wall Thickness 0.5 RV Internal Dim ED PLAX 3.1 cm LA Volume 56.6 cm??? 18 - 58 / 22 - 52 cm??? LA Volume Index 23.9 cm???/m??? 16 - 28 cm???/m??? DOPPLER AV Peak Velocity 110.3 cm/s AV Peak Gradient 4.9 mmHg AV Mean Velocity 74.5 cm/s AV Mean Gradient 2.5 mmHg AV Velocity Time Integral 19.6 cm LVOT Peak Velocity 95.7 cm/s LVOT Peak Gradient 3.7 mmHg LVOT Velocity Time Integral 19.7 cm MV Area PHT 6.6 cm??? Mitral E Point Velocity 50.2 cm/s Mitral A Point Velocity 84.7 cm/s Mitral E to A Ratio 0.6 MV Deceleration Time 115.5 ms FINDINGS Left Ventricle Mildly increased septal wall thickness. Left ventricular cavity size normal. Normal left ventricular systolic function with no obvious regional wall motion abnormalities. Left ventricular ejection fraction is estimated at 55 %. Right Ventricle Normal right ventricular size and function. Right Atrium Normal right atrial size. Left Atrium Mildly increased left atrial area. Mitral Valve Structurally normal mitral valve. No mitral stenosis, regurgitation or prolapse. Aortic Valve Trileaflet aortic valve. No aortic valve stenosis or regurgitation. Tricuspid Valve Structurally normal tricuspid valve. Mild tricuspid regurgitation. Pulmonic Valve Structurally normal pulmonic valve. Pericardium No pericardial effusion. Aorta Normal size aortic root and proximal ascending aorta. CONCLUSIONS Normal left ventricular size wall motion and systolic function Previewed by: Dr. Uvaldo Patel MD (Electronically Signed) Final Date: 07 April 2024 12:09
[2024-04-07 12:17] LABS: Glucose,Whole Blood 283 mg/dL (70-110)
[2024-04-07 13:17] VITALS: BP 146/87; PULSE 76; TEMP 97.7
--- NOTE | 2024-04-07 13:26 | P.HPIM ---
History of Present Illness This is a pleasant 59 years old male with past medical problems as below. Patient presents because of chest pain, it is felt like little poking sensation about 1-2/10 in severity going to the left arm and left neck associated with s ome heaviness and tenderness and some shortness of breath. Now feels much better. No chest pain. Denies specific GI/ symptom. No headache dizziness weakness or numbness. He felt little dizziness but not currently. He denies smoking or illicit drugs. He drinks alcohol occasionally.. Hemodynamically stable and afebrile He has unremarkable labs all of them reviewed when they were negative. Troponin x 3 were less than 0.012. D-dimer was negative at 0.38 and EKG showing sinus rhythm at 73 with no cystic changes Chest x-ray is negative for acute process. Review of Systems Review of systems CONSTITUTIONAL: No fever, no malaise, no fatigue. HEENT: No recent visual problems or hearing problems. Denied any sore throat. CARDIOVASCULAR: No orthopnea, PND, no palpitations, no syncope. PULMONARY: No shortness of breath, no cough, no hemoptysis. GASTROINTESTINAL: No diarrhea, no nausea, no vomiting, no abdominal pain. Normoactive bowel sounds. NEUROLOGICAL: No headaches, no weakness, no numbness. HEMATOLOGICAL: Denies any bleeding or petechiae. GENITOURINARY: Denies any burning micturition, frequency, or urgency. MUSCULOSKELETAL/RHEUMATOLOGICAL: Denies any joint pain, swelling, or any muscle pain. ENDOCRINE: Denies any polyuria or polydipsia. Past Medical History Past Medical History: Cancer, Diabetes Mellitus, Hyperlipidemia, Hypertension, Sleep Apnea/CPAP/BIPAP, Vascular Disorder Additional Past Medical History / Comment(s): L testicular cancer 2001 with surgery/radiation, NIDDM type II, neuropathy bilateral feet, PVD, GAMAL with Cpap, benign colon polyp History of Any Multi-Drug Resistant Organisms: None Reported Past Surgical History: Breast Surgery Additional Past Surgical History / Comment(s): L groin stent, L orchiectomy, L breast benign lumpectomy, colonoscopies. Past Anesthesia/Blood Transfusion Reactions: No Reported Reaction Past Psychological History: No Psychological Hx Reported Smoking Status: Former smoker Past Alcohol Use History: None Reported Past Drug Use History: Marijuana - Past Family History Mother Family Medical History: Cancer Additional Family Medical History / Comment(s): Mother is . She had some form of blood cancer and heart problems. Father Family Medical History: Coronary Artery Disease (CAD), Diabetes Mellitus Additional Family Medical History / Comment(s): Father is living. Medications and Allergies Home Medications Medication Instructions Recorded Confirmed Type Clopidogrel Bisulfate [Plavix] 75 mg PO W/SUPPER 07/14/21 04/06/24 History Rosuvastatin Calcium 20 mg PO W/SUPPER 07/14/21 04/06/24 History amLODIPine [Norvasc] 10 mg PO W/SUPPER 07/14/21 04/06/24 History Aspirin [[place]inger Aspirin EC] 81 mg PO W/SUPPER 04/06/24 04/06/24 History Isosorbide Mononitrate ER [Imdur] 60 mg PO W/SUPPER 04/06/24 04/06/24 History Tamsulosin [Flomax] 0.4 mg PO PC-SUPPER 04/06/24 04/06/24 History glipiZIDE XL [Glucotrol Xl] 5 mg PO BID-W/MEALS 04/06/24 04/06/24 History lisinopriL [Zestril] 20 mg PO W/SUPPER 04/06/24 04/06/24 History Allergies Allergy/AdvReac Type Severity Reaction Status Date / Time No Known Allergies Allergy Verified 04/06/24 17:58 Physical Exam Vitals: Vital Signs Temp Pulse Pulse Resp BP BP BP 04/07/24 07:00 97.6 F 62 16 115/78 04/07/24 00:02 97.6 F 74 17 144/69 04/06/24 23:19 69 18 129/66 04/06/24 19:53 79 18 148/82 04/06/24 19:00 76 16 147/83 04/06/24 17:56 71 18 160/82 04/06/24 16:32 98.4 F 72 18 175/84 Pulse Ox 04/07/24 07:00 96 04/07/24 00:02 98 04/06/24 23:19 99 04/06/24 19:53 98 04/06/24 19:00 96 04/06/24 17:56 98 04/06/24 16:32 97 Intake and Output 04/06/24 04/07/24 04/07/24 22:59 06:59 14:59 Other: # Voids 2 Weight 108.862 kg 108.862 kg GENERAL: The patient is alert and oriented x3, not in any acute distress. Well developed, well nourished. HEENT: Pupils are round and equally reacting to light. EOMI. No scleral icterus. No conjunctival pallor. Normocephalic, atraumatic. No pharyngeal erythema. No thyromegaly. CARDIOVASCULAR: S1 and S2 present. No murmurs, rubs, or gallops. PULMONARY: Chest is clear to auscultation, no wheezing , no crackles. ABDOMEN: Soft, nontender, nondistended, normoactive bowel sounds. No palpable organomegaly. MUSCULOSKELETAL: No joint swelling or deformity. EXTREMITIES: No cyanosis, clubbing, or pedal edema. NEUROLOGICAL: Gross neurological examination did not reveal any focal deficits. SKIN: No rashes. no petechiae. Results CBC & Chem 7: 04/06/24 16:53 04/06/24 16:53 Labs: Abnormal Lab Results - Last 24 Hours (Table) 04/06/24 04/06/24 04/06/24 Range/Units 16:53 16:53 19:44 APTT 18.7 L (22.0-30.0) sec Glucose 133 H (74-99) mg/dL POC Glucose (mg/dL) 145 H (70-110) mg/dL Triglycerides (0.00-149.00) mg/dL VLDL Cholesterol, Calc (5.00-40.00) mg/dL 04/06/24 04/07/24 Range/Units 22:36 06:05 APTT (22.0-30.0) sec Glucose (74-99) mg/dL POC Glucose (mg/dL) 152 H (70-110) mg/dL Triglycerides 202.00 H (0.00-149.00) mg/dL VLDL Cholesterol, Calc 40.40 H (5.00-40.00) mg/dL Thrombosis Risk Factor Assmnt - Choose All That Apply Any of the Below Risk Factors Present?: Yes Each Factor Represents 1 point: Obesity (BMI >25) Other Risk Factors: Yes Each Risk Factor Represents 2 Points: Age 61-74 years Other congenital or acquired thrombophilia - If yes, enter type in comment: No Thrombosis Risk Factor Assessment Total Risk Factor Score: 3 Thrombosis Risk Factor Assessment Level: Moderate Risk Assessment and Plan Assessment: Chest pain most likely musculoskeletal.Negative D-dimer and patient undergoing stress test which is pending Diabetes mellitus Hypertension Hyperlipidemia History of osteoarthritis Hypothyroidism Obstructive sleep apnea Obesity with BMI of 33.5 Plan: Patient evaluated by coordinator of placement Continued on current cardiac medication Patient declines stress test which is pending if is negative then he is going to be cleared by coordinator of placement for discharge Other than that patient is medically stable for discharge once cleared by coordinator of placement Patient was instructed to follow-up with PCP Dr. Spears in 1 week after discharge and he agrees Also patient was instructed to follow-up with coordinator of placement Dr. Frausto in 2 weeks after discharge and he agrees otherwise patient wants to follow-up with his primary coordinator of placement which is also acceptable within the same timeframe. present at bedside and all questions were answered to their satisfaction. They were requesting to know about the BNP which was negative at 54 on admission
[2024-04-07 17:03] LABS: Glucose,Whole Blood 152 mg/dL (70-110)
[2024-04-07] MEDS ORDERED: amLODIPine 10 MG TAB PO SCH (17:30)
[2024-04-07] MEDS ORDERED: FAMOTIDINE 20 MG TAB PO SCH (21:00)
--- NOTE | 2024-04-07 21:16 | CONS ---
CONSULTATION HISTORY OF PRESENT ILLNESS: Carlos Eduardo is a 59-year-old gentleman with history of dyslipidemia, rkz-dghrted-[id number] diabetes, hypertension, who follows with a poultry hatchery manager out of town and actually initially developed flu-like illness. He had fever, cough, and muscle aches and subsequently had some discomfort in the neck and also in the arm with which he was concerned and came to the ER and got admitted. The patient states that he underwent a cardiac catheterization in the past, but did not have any angioplasty. I do not have those records. He apparently had a negative stress test in the past. He is on aspirin, Plavix. EKG revealed sinus rhythm with poor R-wave progression. He had 3 sets of troponins that are all negative. Lipid profile shows that the LDL cholesterol is 29. The plan at this stage is to perform a stress echo. If this is negative, discharge him home and arrange follow up with his poultry hatchery manager. PAST MEDICAL HISTORY: Significant for hypertension, dyslipidemia, alv-nvuomol-tblllzjyb diabetes. CURRENT MEDICATIONS: Include, 1. Aspirin. 2. Plavix. 3. Norvasc. 4. Glucotrol. 5. Imdur. 6. Crestor. 7. Flomax. 8. Zestril. ALLERGIES: There are no known drug allergies. FAMILY HISTORY: Negative for premature coronary artery disease. SOCIAL HISTORY: Negative for smoking, EtOH abuse, or drug abuse. REVIEW OF SYSTEMS: HEENT: Unremarkable. CARDIAC: As described above. RESPIRATORY: As described above. GI: Negative. GENITOURINARY: Negative. ALLERGY/IMMUNOLOGY: Negative. SKIN: Negative. MUSCULOSKELETAL: Significant for arthritis. PSYCHOSOCIAL: Negative. DERM: Negative. CONSTITUTIONAL: Negative. Rest of the system review is not relevant. PHYSICAL EXAMINATION: GENERAL: Comfortable at rest. VITAL SIGNS: Stable. NECK: There is no jugular venous distention. Carotid upstroke is normal. There is no bruit. CHEST: Reveals good air entry bilaterally. HEART: Reveals first and second heart sounds. No gallop. No murmur. ABDOMEN: Soft, nontender. EXTREMITIES: Did not reveal any edema. Peripheral pulses are felt. ASSESSMENT AND PLAN: Precordial chest pain. The patient's chest discomfort seems atypical and has followed recent episode of a flu-like illness. I am going to obtain a stress echo and investigate him further based on the stress echo findings. MMODL / IJN: [id number] /
== END 2024-04-07 17:43 | disposition home or self-care (01) ==
LOC: EC 16:17 → 6NMEDSUR 18:50
PROVIDERS: ADMIT Hospitalist; ATTEND Hospitalist
DX: R07.2 Precordial pain (principal); I10 Essential (primary) hypertension; E11.9 Type 2 diabetes mellitus without complications; E78.5 Hyperlipidemia, unspecified; M19.90 Unspecified osteoarthritis, unspecified site; E03.9 Hypothyroidism, unspecified; G47.33 Obstructive sleep apnea (adult) (pediatric); R68.84 Jaw pain; M79.602 Pain in left arm; M54.2 Cervicalgia; E66.9 Obesity, unspecified; Z68.33 Body mass index [BMI] 33.0-33.9, adult; Z79.02 Long term (current) use of antithrombotics/antiplatelets; Z79.82 Long term (current) use of aspirin; Z79.84 Long term (current) use of oral hypoglycemic drugs; Z79.899 Other long term (current) drug therapy; Z87.891 Personal history of nicotine dependence
CPT/HCPCS: 96372; 96374; 99285; 36415; 93005; 93306; 93351; 85379; 83880; 80061; 80053; 83690; 83735; 84484; 85025; 85610; 85730; 71045; G0378 ×2; J1644; J3490

== ENCOUNTER → 2024-05-09 | Outpatient (CLI) | payer OTHER ==
--- NOTE | 2024-05-09 09:00 | US ---
EXAMINATION TYPE: US carotid duplex BILAT DATE OF EXAM: 05/09/2024 COMPARISON: NONE CLINICAL INDICATION: Male, 59 years old with history of M54.2 CERVICALGIA; dizziness TECHNIQUE: Grayscale, color Doppler and spectral Doppler evaluation of the bilateral carotid systems and vertebral arteries. Indirect Doppler criteria was utilized. FINDINGS: EXAM MEASUREMENTS: RIGHT: Peak Systolic Velocity (PSV) cm/sec ----- Right CCA: 93.2 ----- Right ICA: 84.4 ----- Right ECA: 115 ICA/CCA ratio: 0.9 RIGHT: End Diastole cm/sec ----- Right CCA: 14.7 ----- Right ICA: 22.5 ----- Right ECA: 13.9 LEFT: Peak Systolic Velocity (PSV) cm/sec ----- Left CCA: 100 (proximal and mid 144) ----- Left ICA: 83.1 ----- Left ECA: 121 ICA/CCA ratio: 0.8 LEFT: End Diastole cm/sec ----- Left CCA: 12.6 ----- Left ICA: 24.3 ----- Left ECA: 8.6 VERTEBRALS (direction of flow): Right Vertebral: Antegrade Left Vertebral: Antegrade Rhythm: Normal MANAGER MERCHANDISING NOTES: Slightly elevated velocities at Lt CCA, Mild bilateral plaque in Bulb No significant stenosis seen IMPRESSION: 1. Slightly elevated velocity within the proximal and mid left CCA could represent a mild or moderate proximal CCA stenosis. 2. No hemodynamically significant internal carotid artery stenosis on either side. Criteria for Assigning % of Stenosis / Diameter reduction (Estimation based on the indirect measurements of the internal carotid artery velocities (ICA PSV). 1. Normal (no stenosis)=ICA PSV < 125 cm/s: ratio < 2.0: ICA EDV<40 cm/s. 2. Less than 50% stenosis=ICA PSV < 125 cm/s: ratio < 2.0: ICA EDV<40 cm/s. 3. 50 to 69% stenosis=ICA PSV of 125 to 230 cm/s: ration 2.0 ? 4.0: ICA EDV 40-100 cm/s. 4. Greater than 70% stenosis to near occlusion= ICA PSV > 230 cm/s: ratio > 4.0: ICA EDV > 100 cm/s. 5. Near occlusion= ICA PSV velocities may be low or undetectable: variable ratio and ICA EDV. 6. Total occlusion=unable to detect flow. [facility], , 05/09/2024 8:58 AM
== END | disposition home or self-care (01) ==
LOC: RADUSWWP 07:37
PROVIDERS: ATTEND Family Medicine
DX: M54.2 Cervicalgia (principal); R42 Dizziness and giddiness
CPT/HCPCS: 93880